=== PATIENT | female | born 2005 | race Caucasian/White ===

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

== ENCOUNTER 2025-02-12 01:16 | Emergency (ER) | payer OTHER, SELFPAY ==
--- NOTE | 2025-02-12 01:20 | CRLHL7_ITS ---
For Patients: As a result of the Cures Act, medical imaging exams and procedure reports are released immediately into your electronic medical record. You may view this report before your referring provider. If you have questions, please contact your health care provider. Indication: Pain, fall out of bed Technique: Three views of the left ankle Comparison: None Findings/Impression: No acute radiographic abnormality appreciated. Dictated by Terry Steele MD @ 02/12/2025 1:44:35 AM (Electronically Signed)
--- OUTSIDE RECORDS SUMMARY | 2025-02-12 01:21 | XMS_ITS | Clinical Summary ---
Author Organization [employer] [facility] Address [address] [place] [address] Care Team Providers Care Illuminating Engineer Name Role Phone Sahara Adair NP Primary Care Provider [phone] [phone] Allergies No known active allergies Medications lithium carbonate (LITHOBID) 300 mg Controlled-Rele ase tablet TAKE 1 TABLET BY MOUTH DAILY IN THE MORNING AND 2 TABLETS BY MOUTH DAILY IN THE EVENING 08/30/2019 Active lithium carbonate (ESKALITH-CR) 450 mg Controlled-Rele ase tablet TAKE 2 TABLETS (900 MG) BY MOUTH AT BEDTIME 09/24/2020 Active propranolol ER (INDERAL LA) 60 mg Cs24 Sustained-Relea se capsule TAKE ONE CAPSULE (60MG) BY MOUTH ONCE DAILY 01/15/2022 Active ziprasidone (GEODON) 80 mg capsule TAKE 1 CAPSULE (80 MG) BY MOUTH IN THE EVENING WITH FOOD 01/12/2022 Active benztropine (COGENTIN) 0.5 mg tabletIndicatio ns:Excessive sweating Take 1 Tablet (0.5 mg) by mouth two times daily. 0 02/01/2022 Active oxyCODONE (ROXICODONE) 5 mg/5 mL solutionIndicat ions:Sore throat Take 5 mL (5 mg) by mouth every 6 hours if needed for Pain. 60 mL 07/03/2023 Active Active Problems Problem Noted Date Diagnosed Date Bipolar 1 disorder 01/29/2018 Overview (01/29/2018): Managed by Psych [facility] 04/30/2017 Encounters Date Type Department Care Team Description 12/24/2024 11:15 AM CDT Orders Only [facility] [address] [place] [address] Lab, [facility] 12/24/2024 Travel 12/24/2024 Telephone [facility] [address] [place] [address] Sahara Adair NP Lab (orders needed) from Last 3 Months Immunizations Immunization Administration Dates Next Due AMB Influenza, IIV3 (Age >=3 years) Preserve Free (Flu Clinic Only) 03/22/2017 DTaP 04/01/2010, 5,01/01/2005,09/25 DTaP-HIB (TriHIBIT) 01/04/2006 HIB-HepB (Comvax) 01/01/2005,2004 Hepatitis A (Peds) 09/15/2007,07/15/2006 Hepatitis B (Peds) 06/22/2005 Inactivated Polio Vaccine 04/01/2010,,01/01/2005,09/25 Influenza A (H1N1), Inactivated 06/02/2009,04/23 Influenza, IIV3 (Age 6-35 mos) 05/23/2016 Influenza, IIV3 (Age >=3 years) 04/01/20 10,04/18/2006,06/05/2005,04/10 Influenza, IIV4 03/13/2019,01/29/2018,03/22/2017 Influenza, IIV4 (=>6mos) MDV 04/02/2015 Influenza,LAIV4 Live Intrana yesy (Flumist) 02/08/2012 MENINGOCOCCAL VACCINE 2 VIAL 2MO-55YO (MENVEO) 11/10/2020 MMR 04/01/2010,11/02/2005 Meningococcal Vaccine (Menactra) 12/07/2016 Pneumococcal conj 7-Valent (Prevnar 7) 0 01/04/2006,02/19/2005,01/01/2005,09/25 Tdap 03/03/2016 Varicella Vaccine 04/01/2010,11/02/2005 Family History Medical History Relation Name Comments ADD / ADHD Father Bilateral breast cancer Maternal Grandmother Parkinsonism Maternal Grandmother Anxiety disorder Mother Depression Mother Diabetes Paternal Grandfather Relation Name Status Comments Father Alive Maternal Grandmother Alive Mother Alive Paternal Grandfather Social History Tobacco Use Types Packs/Day Years Used Date Smoking Tobacco: Never Smokeless Tobacco: Never Alcohol Use Standard Drinks/Week Comments Never 0 (1 standard drink = 0.6 oz pur e alcohol) PHQ-2 Answer Date Recorded PHQ-2 TOTAL SCORE 1 02/01/2022 Social Connections Answer Date Recorded Frequency of Communication with Friends and Fami ly Not on file 06/03/2021 Financial Resource Strain Answer Date R ecorded Difficulty of Paying Living Expenses Not on file 06/03/2021 Difficulty of Paying Living Expenses Not on file 06/03/2021 Comments No Sex and Gender Information Value Date Recorded Sex Assigned at Not on file Legal Sex Female 8:30 AM SEMICONDUCTOR WAFERS ETCHER STRIPPER Gender Identity Not on file Sexual Orientation Not on file Obstetrics History Last Filed Vital Signs Vital Sign Reading Time Taken Comments Blood Pressure 102/62 07/03/2023 1:46 PM SEMICONDUCTOR WAFERS ETCHER STRIPPER Pulse 92 07/03/2023 1:46 PM SEMICONDUCTOR WAFERS ETCHER STRIPPER Temperature 36.8 C (98.3 F) 07/03/2023 1:46 PM SEMICONDUCTOR WAFERS ETCHER STRIPPER Respiratory Rate 15 11/28/2021 9:13 AM CDT Oxygen Saturation 99% 07/03/2023 1:46 PM SEMICONDUCTOR WAFERS ETCHER STRIPPER Inhaled Oxygen Concentration - - Weight 114.3 kg (252 lb) 07/03/2023 1:46 PM SEMICONDUCTOR WAFERS ETCHER STRIPPER Height 165.5 cm (5' 5.16) 02/01/2022 9:49 AM CD T Body Mass Index - - Plan of Treatment Health Maintenance Due Date Last Done Comments HPV series for age 9-45 (1 - 3-dose series) 2019 BMI (ht and wt on same day) for age 18+ 2022 Hepatitis C screening for age 18-79 2022 Depression screening for age 12+ 02/01/2023 02/01/2022, 11/10/2020, 01/08/2019, Additional history exists Well Child Check for age 3-20 02/01/2023 02/01/2022, 11/10/2020 COVID-19 vaccine series ( season) 2025 Influenza Vaccine (#1) 2025 9, 01/29/2018, 03/22/2017, Additional history exists Tetanus booster 03/03/2026 03/03/2016 RSV vaccine for adults or (1 - 1-dose 75+ series) 2079 Hepatitis B series for 19+ Completed 06/22, 01/01/2005, 2004 Pneumococcal series for age 6-49 Aged Out 01/04/2006, 02/19/2005, 01/01/2005, Additional history exists No longer eligible based on patient's age to complete this topic Meningococcal series for age 11-21 Completed 11/10/2020, 12/07/2016 HIV for age 15-65 Completed 01/31/2022 Procedures Procedure Name Priority Date/Time Associated Diagnosis Comments ANTI HIV 1/2 Add On 01/31/2022 9:41 AM CDT Screening for HIV (human immunodeficiency virus) from Last 3 Months or Most Recently Relevant to Health Maintenance Results * ANTI HIV 1/2 [63505.0] (01/31/2022 9:41 AM CDT) HIV-1/HIV-2 ANTIBODY Non-Reacti ve Non-Reacti ve 01/31/2022 6:59 PM CDT [facility] Comment:HIV-1 p24 and HIV-1/ HIV-2 Ab not detected. Blood BLOOD SPECIMEN / Unknown Butterfly / Unknown 01/31/2022 9:41 AM CDT 01/31/2022 9:41 AM CDT us Sahara Adair RECONCILIATION COORDINATOR SEND OUTS Final Res ult [facility] [address] [place] [address], [place] from Last 3 Months or Most Recently Relevant to Health Maintenance Insurance [employer] Care Teams Illuminating Engineer Relationship Specialty [place] [address] [place] [address] PCP - General Nurse Practitioner 09/14/19
--- OUTSIDE RECORDS SUMMARY | 2025-02-12 01:21 | XMS_ITS | Clinical Summary ---
Author Organization [employer] Address [address] [place] [address] Care Team Providers Care Action Finisher Name Role Phone Self-Referral, Patient MD Primary Care Provider Source Comments You are receiving this document as you are listed as the primary care provider,follow-up provider, or the patient has been referred to you for consultation.This is in compliance with the Medicare andSt[facility] EHR Incentive Program,which states Providers who transition their patient to another setting of careor provider of care or refers their patient to another provider of care shouldprovide summary care record for each transition of care or referral. [employer] Allergies Active Allergy Reactions Criticality Noted Date Comments Ibuprofen Other, see comments 07/16/2022 Cant take ibuprofen due to lithium Medications VYVANSE 50 MG capsule 0 Active lithium carbonate ER (LITHOBID) 300 MG extended release tablet 0 Active lamoTRIgine (LAMICTAL) 100 MG tablet PLEASE SEE ATTACHED FOR DETAILED DIRECTIONS 0 Active lamoTRIgine (LAMICTAL) 150 MG tablet 0 Active FLUoxetine (PROZAC) 10 MG capsule TAKE 1 CAPSULE (10 MG) BY MOUTH DAILY THE WEEK BEFORE MENSTRUAL CYCLE 0 Active FLUoxetine (PROZAC) 20 MG capsule Take 1 Capsule (20 mg) by mouth daily. 0 Active amphetamine-dext roamphetamine (ADDERALL) 10 MG tablet Take 1 Tablet (10 mg) by mouth two times a day. 0 Active doxycycline monohydrate (MONODOX) 100 MG capsule Take 1 Capsule by mouth two times a day. TAKE WITH FOOD. 60 Capsule 2 0 Active Additional Information Patient not taking.Reported on 07/01/2023 tretinoin (RETIN-A) 0.05 % cream Apply pea-size amount to entire face every other night and slowly increase to nightly use as tolerated. 45 g 11 0 Active Additional Information Patient not taking.Reported on 07/16/2022 tazarotene (TAZORAC) 0.1 % gel Apply thin coat to acne prone skin QOHS after washing and moisturizer. Increase to QHS as tolerated. 60 g 5 0 Active Additional Information Patient not taking.Reported on 07/16/2022 trimethoprim-kedar ymyxin B (POLYTRIM) 14425-1.1 UNIT/ML-% eye drop solution Place 1 Drop into left eye every 6 hours. 10 mL 1 Active Additional Information Patient not taking.Reported on 04/02/2022 propranolol (INDERALLA) 60 MG 24 hour release capsule Take 1 Capsule (60 mg) by mouth daily. 2 Active ziprasidone (GEODON) 40 MG capsule Take 1 Capsule (40 mg) by mouth every morning. 2 Active ziprasidone (GEODON) 20 MG capsule Take 1 Capsule (20 mg) by mouth every morning. 2 Active VENTOLIN HFA 108 (90 Base) MCG/ACT inhaler 2 Puffs every 4 hours as needed. 2 Active hydrOXYzine HCl (ATARAX) 10 MG tablet Take 1-2 Tablets (10-20 mg) by mouth as needed. 3 Active lisdexamfetamine (VYVANSE) 60 MG capsule Take 1 Capsule (60 mg) by mouth every morning. 3 Active lisdexamfetamine (VYVANSE) 70 MG capsule Take 1 Capsule (70 mg) by mouth every morning. 4 Active Active Problems No known active problems Social History Tobacco Use Types Packs/Day Years Used Date Smoking Tobacco: Never Smokeless Tobacco: Never Tobacco Cessation:Counseling Given: Not Answered Comments No Sex and Gender Information Value Date Recorded Sex Assigned at Not on file Legal Sex Female 5:17 PM TAG MARKER Gender Identity Not on file Sexual Orientation Not on file Last Filed Vital Signs Vital Sign Reading Time Taken Comments Blood Pressure 122/69 07/01/2023 6:57 PM TAG MARKER Pulse 102 07/01/2023 6:57 PM TAG MARKER Temperature 38.2 C (100.7 F) 07/01/2023 6:57 PM TAG MARKER Respiratory Rate 18 07/01/2023 6:57 PM TAG MARKER Oxygen Saturation 98% 07/01/2023 6:57 PM TAG MARKER Inhaled Oxygen Concentration - - Weight - - Height - - Body Mass Index - - Plan of Treatment Health Maintenance Due Date Last Done Comments Chlamydia 2004 Hep C Screening (Preventive Services) 2004 MenB Immunization Discussion 2004 HPV Vaccine (1 - 3-dose series) 2019 HIV Screening (Preventive Services) 2020 Adult Preventive Visit 2022 HepB Vaccine (1) 2023 COVID-19 Vaccine ( season) 2025 Influenza Vaccine (#1) 2025 9, 01/29/2018, 03/22/2017, Additional history exists DTaP/Tdap/Td Vaccine (7 - Tdap) 03/03/2026 03/03/2016, 04/01/2010, 01/04/2006, Additional history exists Zoster/Shingles Vaccine (1 of 2) 2054 Hib Vaccine Completed 01/04/2006, 06/2004, 2004 Pneumococcal Vaccine Aged Out 01/04/2006, 02/19/2005, 01/01/2005, Additional history exists No longer eligible based on patient's age to complete this topic HepA Vaccine Completed 09/15/2007, 07/15/2006 IPV (Polio) Vaccine Completed 04/01/2010, 06/22/2005, 01/01/2005, Additional history exists MCV4 Vaccine Completed 11/10/2020, 12/07/2016 Insurance SELF INSURED SELF INSURED Care Teams Action Finisher Relationship Specialty Start Date End Date Self-Referral, Patient, [place] [address] PCP - General 07/16/22
--- OUTSIDE RECORDS SUMMARY | 2025-02-12 01:21 | XMS_ITS | Clinical Summary ---
Author Organization [facility] Address [address] [place] [address] Care Team Providers Care Deck Supervisor Name Role Phone Unavailable Primary Care Provider Unavailabl e Source Comments Patient records contain information from all sites at [facility]. For routine questions regarding patient records, call [phone] during business hours, M-F 8:00 AM - 5:00 PM Central Time. Record requests for emergency care only can be directed to [phone] at any time.[facility] Medications * This document contains information received from the source organization and may not represent a complete record from that organization. methylphenidate HCl 54 mg ER tablet Take 72 mg by mouth every morning. Active lurasidone (Latuda) 80 mg tablet Take 120 mg by mouth daily with morning meal. Administer with food (at least 350 calories) Active lamoTRIgine (LaMICtaL) 150 mg tablet Take 150 mg by mouth daily. Active lamoTRIgine (LaMICtaL) 200 mg tablet Take 200 mg by mouth daily. Active propranolol XL 80 mg 24 hr capsule Take 80 mg by mouth at bedtime. Active Active Problems Problem Noted Date Diagnosed Date Bipolar I Mixed Moderate 01/07/2017 Attention Deficit Disorder Combined Type 017 Immunizations Immunization Administration Dates Next Due influenza vaccine quad (FLUZ ONE/FLUARIX) (6 months and older)(PF) 03/22/2017 Social History Tobacco Use Types Packs/Day Years Used Date Smoking Tobacco: Never [facility] Utilities Answer Date Recorded In the past 12 months has [facility] [employer], gas, oil, or water company threatened to shut off services in your home? No 03/25/2024 Hunger Vital Sign Answer Date Recorded Within the past 12 months, y ou worried that your food would run out before you got the money to buy more. Never true 03/25/20 24 Within the past 12 months, t he food you bought just didn't last and you didn't have money to get more. Never true 03/25/2024 PRAPARE - Transportation Answer Date Re corded In the past 12 months, has l ack of transportation kept you from medical appointments or from getting medications? No 03/04 In the past 12 months, has l ack of transportation kept you from meetings, work, or from getting things needed for daily living? No 03/25/2024 Depression Answer Date Recor ded PHQ-9 Total Score (max 27) 14 03/25 Housing Stability Answer Date Recorded What is your living situation today? [facility] place to live 03/25/2024 Comments Unknown Sex and Gender Information Value Date Recorded Sex Assigned at Not on file Legal Sex Female 1:14 PM CDT Gender Identity Not on file Sexual Orientation Not on file Last Filed Vital Signs Vital Sign Reading Time Taken Comments Blood Pressure 112/70 03/25/2024 7:25 AM CDT Pulse 98 03/25/2024 7:25 AM CDT Temperature - - Respiratory Rate - - Oxygen Saturation - - Inhaled Oxygen Concentration - - Weight 114 kg (250 lb 10.6 oz) 03/25/2024 7:25 A M CDT shoes on Height 167.5 cm (5' 5.95) 03/25/2024 7:25 AM CD T shoes on Body Mass Index 40.53 03/25/2024 7:25 AM CDT Plan of Treatment Health Maintenance Due Date Last Done Comments Chlamydia and Gonorrhea Screening 2004 HIV Screening 2004 Hearing Screening during Well Child Visit 2004 Hepatitis C Screening 2004 TB Screening during Well Child Visit 2004 1 week Well Child Check-Up 2004 1 month Well Child Check-Up 2004 2 month Well Child Check-Up 2004 4 month Well Child Check-Up 2004 9 month Well Child Check-Up 03/30/2005 15 month Well Child Check-Up 09/28/2005 18 month Well Child Check-Up 12/28/2005 2 year Well Child Check-Up 06/30/2006 30 month Well Child Check-Up 12/28/2006 3 year Well Child Check-Up 06/30/2007 Well Child Check-Up Completed in Past Year 06/30/2007 5 year Well Child Check-Up 06/30/2009 6 year Well Child Check-Up 06/30/2010 7 year Well Child Check-Up 06/30/2011 8 year Well Child Check-Up 06/30/2012 10 year Well Child Check-Up 06/30/2014 12 year Well Child Check-Up 06/30/2016 13 year Well Child Check-Up 06/30/2017 14 year Well Child Check-Up 06/30/2018 Vision Screening during Well Child Visit 2018 15 year Well Child Check-Up 06/30/2019 HPV Vaccines (1 - 3-dose series) 2019 17 year Well Child Check-Up 06/30/2021 18 year Well Child Check-Up 06/30/2022 19 year Well Child Check-Up 06/30/2023 Depression Screening (Annual PHQ-2) 06/03/2024 20 year Well Child Check-Up 06/30/2024 Well Child Check-Up (WCC) 06/30/2024 COVID-19 Vaccine ( season) 2025 Influenza Vaccine (#1) 2025 9, 01/29/2018, 03/22/2017, Additional history exists Glucose Test for Med Monitoring 10/08/2025 10/08/2024, 08/01/2023, 03/12/2023, Additional history exists DTaP,Tdap,and Td Vaccines (7 - Td or Tdap) 03/03/2026 03/03/2016, 04/01/2010, 01/04/2006, Additional history exists Hepatitis B Vaccines Completed 06/22/2005, 01/01/2005, 2004 Pneumococcal vaccine (0-49 years) Aged Out 01/04/2006, 02/19/2005, 01/01/2005, Additional history exists No longer eligible based on patient's age to complete this topic IPV Vaccines Completed 04/01/2010, 06/04, 01/01/2005, Additional history exists Meningococcal Vaccine Completed 11/10/2020, 017 Anemia/Iron Deficiency Screening During Well Child Visit (if High Risk Menstruating Female) Completed 08/01/2023, 07/04/2022, 10/13/2021, Additional history exists Procedures Procedure Name Priority Date/Time Associated Diagnosis Comments CBC WITH DIFFERENTIAL, B Routine 03/22/2017 2:51 PM CDT from Last 3 Months or Most Recently Relevant to Health Maintenance Results * (ABNORMAL) CBC with Differential (03/22/2017 2:51 PM CDT) Hemoglobin 12.9 12.2 - 14.8 G/DL [facility] Hematocrit 38.6 36.3 - 43.4 % [facility] RBC Distrib Width 12.3 11.2 - 13.5 % [facility] Platelet Count 351 150 - 450 X10(9)/L [facility] Leukocytes 9.4(H) 4.1 - 8.9 X10(9)/L [facility] Neutrophils 5.59 1.80 - 8.00 X10(9)/L [facility] Eosinophils 0.32 0.00 - 0.50 X10(9)/L [facility] Basophils 0.06 0.00 - 0.20 X10(9)/L [facility] Erythrocytes 4.69 4.10 - 5.20 X10(12)/L [facility] MCV 82.3 79.9 - 92.3 FL [facility] Lymphocytes 2.83 1.20 - 5.20 X10(9)/L [facility] Monocytes 0.60 0.00 - 0.80 X10(9)/L [facility] 03/22/2017 2:51 PM CDT 03/22/2017 2:51 PM CDT us Estrada Kemp D.O. LAB BLOOD ADD-ON Final Resul t [facility] [address] [place] [address], [facility] from Last 3 Months or Most Recently Relevant to Health Maintenance Insurance [employer] [place] [id number] [facility] [place] [id number]
--- OUTSIDE RECORDS SUMMARY | 2025-02-12 01:21 | XMS_ITS | Clinical Summary ---
Author Organization [facility] Address [address] [place] [address]. [place] [address] Care Team Providers Care Parking Meter Mechanic Name Role Phone Giovany Saharaadam Dueñas NP Primary Care Provider [phone] Allergies No known active allergies Medications propranolol ER (INDERAL LA) 60 MG 24 hr capsule Take 80 mg by mouth daily. 2 Active lurasidone (LATUDA) 80 MG TABS tablet Take 120 mg by mouth daily. Active lamoTRIgine (LAMICTAL) 200 MG tablet Take 350 mg by mouth daily. 2 Active Methylphenidate HCl (CONCERTA PO) Take by mouth. Activ e methylphenidate HCl ER, OSM, (CONCERTA) 36 MG CR tablet Take 36 mg by mouth every morning. Active ibuprofen (ADVIL/MOTRIN) 800 MG tabletIndicatio ns:Encounter for IUD insertion Take 1 tablet (800 mg) by mouth every 6 hours as needed for other (mild and/or inflammatory pain). 30 tablet 5 Active acetaminophen (TYLENOL) 325 MG tabletIndicatio ns:Encounter for IUD insertion Take 3 tablets (975 mg) by mouth every 6 hours as needed for mild pain. 50 tablet 5 Active Immunizations Immunization Administration Dates Next Due Influenza (H1N1) 06/02/2009 Social History Tobacco Use Types Packs/Day Years Used Date Smoking Tobacco: Never Smokeless Tobacco: Never Tobacco Cessation:Counseling Given: Not Answered Alcohol Use Standard Drinks/Week Comments Not Currently 0 (1 standard drink = 0.6 oz pur e alcohol) Adolescent Education Answer Date Record ed Getting School Help Needed Not on file 07/02 Interpersonal Safety Answer Date Record ed Do you feel physically and e motionally safe where you currently live? Yes 09/30/2024 Within the past 12 months, h ave you been hit, slapped, kicked or otherwise physically hurt by someone? No 09/30/2024 Within the past 12 months, h ave you been humiliated or emotionally abused in other ways by your partner or ex-partner? No 09/30/2024 Comments No Sex and Gender Information Value Date Recorded Sex Assigned at Not on file Legal Sex Female 4:36 AM LEAD JAVASCRIPT ENGINEER Gender Identity Not on file Sexual Orientation Not on file Last Filed Vital Signs Vital Sign Reading Time Taken Comments Blood Pressure 130/79 10/08/2024 5:00 PM CDT Pulse 98 10/08/2024 5:00 PM CDT Temperature 37.3 C (99.2 F) 10/08/2024 5:00 PM CDT Respiratory Rate 18 10/08/2024 5:00 PM CDT Oxygen Saturation 100% 10/08/2024 5:00 PM CDT Inhaled Oxygen Concentration - - Weight 118.3 kg (260 lb 12.8 oz) 10/08/2024 5:00 PM CDT scale Height 162.6 cm (5' 4) 10/08/2024 5:00 PM CDT Body Mass Index 44.77 10/08/2024 5:00 PM CDT Plan of Treatment Health Maintenance Due Date Last Done Comments ADVANCE CARE PLANNING 2004 ANNUAL REVIEW OF HM ORDERS 2004 HPV VACCINE (1 - 3-dose series) 2019 MENINGITIS B VACCINE (1 of 2 - Standard) 2020 HEPATITIS C SCREENING 2022 PHQ-2 (once per calendar year) 2024 YEARLY PREVENTIVE VISIT 01/09/2025 01/10/20 24, 02/01/2022, 11/10/2020 COVID-19 VACCINE ( season) 2025 INFLUENZA VACCINE (#1) 2025 9, 01/29/2018, 03/22/2017, Additional history exists CHLAMYDIA SCREENING 09/04/2025 09/04/2024 DTAP/TDAP/TD VACCINE (7 - Td or Tdap) 03/03/2026 03/03/2016, 04/01/2010, 01/04/2006, Additional history exists ZOSTER VACCINE (1 of 2) 2054 HEPATITIS B VACCINE Completed 06/22/2005, 01/01/2005, 2004 PNEUMOCOCCAL VACCINE: PEDIATRICS (0 to 5 YEARS) AND AT-RISK PATIENTS (6 to 49 YEARS) Aged Out 01/04/2006, 02/19/2005, 01/01/2005, Additional history exists No longer eligible based on patient's age to complete this topic MENINGITIS VACCINE Completed 11/10/2020, 12/07/2016 HIV SCREENING Completed 01/31/2022 Goals Goal Patient Goal Type Associated Problems Recent Progress Patient-Stated? 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 trachomatis rRNA by motor mechanic mediated amplification. A negative result by motor mechanic mediated amplification does not preclude the presence of infection because results are dependent on proper and adequate collection, absence of inhibitors and sufficient rRNA to be detected. Neisseria gonorrhoeae Negative Negative 09/05/2024 12:21 PM CDT [facility] Comment:Negative for N. gono rrhoeae rRNA by motor mechanic mediated amplification. A negative result by motor mechanic mediated amplification does not preclude the presence of C. trachomatis infection because results are dependent on proper and adequate collection, absence of inhibitors and sufficient rRNA to be detected. CTNG Specimen Source Cervix 09/05/2024 12:21 PM CDT [facility] Swab TOPOGRAPHY UNKNOWN / Unknown Non-blood Collection / Unknown 09/04/2024 1:17 PM CDT 09/04/2024 4:00 PM CDT us Caterina Smith CNM LAB - MICRO GENERAL ORDERABL ES Final Result [facility] Inf. Diseases Diag. Lab [address] [facility] [place] [address] from Last 3 Months or Most Recently Relevant to Health Maintenance Additional Health Concerns Active Problems Noted Date Diagnosed Date MyC ECC SURG ENROLL 09/23/2024 [facility] Care Teams Parking Meter Mechanic Relationship Specialty [place] [id number] [address] [place], [place] [id number] PCP - General Family Medicine 09/16/24
[2025-02-12 01:23] VITALS: BP 140/70; PULSE 89; RESP 16; TEMP 36.6; O2SAT 98; BMI 42.9
[2025-02-12 01:30] VITALS: PULSE 90
--- NOTE | 2025-02-12 01:39 | ED_ITS ---
HPI - General Adult General Chief complaint: Extremity Pain/Injury, Lower Stated complaint: poss broken left ankle Time Seen by Provider: 02/12/25 01:19 History of Present Illness HPI narrative: Patient is a 19-year-old young lady who stumbled out of bed tonight and twisted her left ankle. She has pain over the lateral malleolus. She has some minor swelling but no ecchymosis. She is having trouble bearing weight. She has had no other injuries. No skin breakdown no other related symptoms. Patient is otherwise in her usual state of health. X-ray series reviewed by me shows no acute abnormalities of the left ankle. Related Data Home Medications ?Medication ?Instructions ?Recorded ?Confirmed lamotrigine 150 mg tablet 150 mg PO DAILY 11/05/2309/24 lamotrigine 200 mg tablet 200 mg PO QDAY 11/05/2309/24 lurasidone 80 mg tablet 80 mg PO DAILY 11/05/2309/24 propranolol 80 mg capsule,24 80 mg PO DAILY 11/05/23 0 11/05/23 hr,extended release Allergies Allergy/AdvReac Type Severity Reaction Status Date / Time No Known Drug Allergies Allergy Verified 11/05/23 13:41 Review of Systems Status of ROS: Reports: 10 or more systems reviewed and unremarkable except as noted in History and below [facility] Medical History Uvulitis ?K12.2 - Cellulitis and abscess of mouth (ICD-10) Sore throat ?J02.9 - Acute pharyngitis, unspecified (ICD-10) Surgical History No significant past surgical history Social History Smoking Status: Never smoker Do you use any of these nicotine containing products: None Second hand tobacco smoke exposure: No How often do you have a drink containing alcohol: never How often do you have six or more drinks on one occasion: Never AUDIT-C Alcohol total score: 0 Non-prescribed substance use: denies use Exam Narrative: Exam Narrative: EXAM GENERAL: Patient appears comfortable and well. EYES: No scleral icterus. LYMPH: No supraclavicular or cervical lymphadenopathy. SKIN: Visible skin seen during exam normal or with benign process only. EXT: No dependent lower extremity pedal edema. Swelling noted lateral ankle on the left. ABD: Soft, non tender, non distended. PSYCH: Good eye contact, speech is not pressured. Const: Vital Signs, click to edit/add: Vital Signs - 24 hr 02/12/25 01:23 02/12/25 01:30 Temperature 98 F Pulse Rate [Left D orsalis Pedis] 90 Pulse Rate [Pulse Oximeter] 89 Respiratory Rate 16 Blood Pressure [Ri ght Upper Arm] 140/70 H Pulse Oximetry 98 Oxygen Delivery Me thod Room Air Course Vital Signs Vital signs: Initial Vital Signs Temperature 98 F 02/12/25 01:23 Temperature Source Temporal Artery Scan 02/12/25 01:23 Pulse Rate 89 02/12/25 01:23 Respiratory Rate 16 02/12/25 01:23 Blood Pressure 140/70 H 02/12/25 01:23 Blood Pressure Mean 93 02/12/25 01:23 Blood Pressure Position Semi-Fowlers 02/12/25 01:23 Pulse Oximetry 98 02/12/25 01:23 Oxygen Delivery Method Room Air 02/12/25 01:23 Vital Signs Temperature 98 F 02/12/25 01:23 Pulse Rate 89 02/12/25 01:23 Respiratory Rate 16 02/12/25 01:23 Blood Pressure 140/70 H 02/12/25 01:23 Pulse Oximetry 98 02/12/25 01:23 Oxygen Delivery Method Room Air 02/12/25 01:23 Temperature 98 F 02/12/25 01:23 Pulse Rate 90 02/12/25 01:30 Respiratory Rate 16 02/12/25 01:23 Blood Pressure 140/70 H 02/12/25 01:23 Pulse Oximetry 98 02/12/25 01:23 Oxygen Delivery Method Room Air 02/12/25 01:23 Medical Decision Making MDM Narrative Medical decision making narrative: Patient is a 19-year-old woman who appears to have sprained her left ankle. I did review her x-rays personally and I do not believe there are any fractures. She is offered rest ice compression elevation rotation of Tylenol Motrin. She does require crutches. I will be looking for the radiology over read as well. Discharge Plan Discharge Clinical Impression: Ankle sprain Patient Disposition: Home, Self-Care Condition: Stable Instructions: Ankle Sprain (ED) Additional Instructions: Rest Ice Compression Elevation Crutches as needed Tylenol Motrin Follow-up with your doctor if no improvement by mid week next week. Activity Level: No Restrictions Discharge Diet: Regular Prescriptions: No Action lurasidone 80 mg tablet 80 mg PO DAILY lamotrigine 150 mg tablet 150 mg PO DAILY propranolol 80 mg capsule,extended release 24 hr 80 mg PO DAILY lamotrigine 200 mg tablet 200 mg PO QDAY Follow Up/Referrals: Sahara Adair, ALBERT, BEHAVIORAL CONSULTANT [Primary Care Provider, Family Practice] [facility]: [facility] Info Instructions
== END 2025-02-12 02:00 | disposition home or self-care (01) ==
LOC: ED 01:58
PROVIDERS: Emergency Provider Internal Medicine
DX: S93.402A Sprain of unspecified ligament of left ankle, initial encounter (principal); W18.49XA Other slipping, tripping and stumbling without falling, initial encounter; Y92.003 Bedroom of unspecified non-institutional (private) residence as the place of occurrence of the external cause
CPT/HCPCS: 73610; 99283

== ENCOUNTER 2025-05-24 16:31 | Emergency (ER) | payer OTHER, SELFPAY ==
--- OUTSIDE RECORDS SUMMARY | 2025-05-24 16:33 | XMS_ITS | Data Portability ---
Author Organization GOLDY Urias [employer], [id number] Address [address] [place] [address] Assessment Encounter Date Assessment Date Assessment LastModified by Organization Details LastModified Time 09/17/2024 09/17/2024 19yo G0 schedule d for an EUA, Kyleena IUD insertion with formal ultrasound guidance at [facility] 09/30/24. Ali is scheduled for the above surgery and has no questions today. We reviewed the procedure in detail. All risks, benefits and alternatives were discussed including but not limited to bleeding, injection, injury to surrounding organs/vessels/nerves, need for further procedures, medical complications, risks of anesthesia and uterine perforation (<06/999). We discsused that ultrasound guidance does not negative the last noted risk. She expressed understanding and all of her questions were answered to her satisfaction. This service was provided using telemedicine including synchronous audio and/or video approved technology. The patient verbally Consents to telemedicine services, virtual check-ins and evisits. Telemedicineconsultation via Synchronous Audio and Video Call. The patient is located in their home-10 when receiving health services through telecommunication technology. I spent a total of 10 minutes providing care for this patient including: preparing to see the patient, obtaining a medical history, completing a medically appropriate physical exam, completing documentation of visit information and plans in the EMR, counseling the patient and/or caregiver regardingher diagnosis, treatment options and follow up plans, as well as any necessary communication of subsequent test results to the patient. nrxiedkamr9Bol difmpugus91/17/2025 15:09:5405I spent a total of 20 minutes providing care for this patient including: preparing to see the patient, obtaining a medical history, completing a medically appropriate physical exam, completing documentation of visit information and plans in the EMR, counseling the patient and/or caregiver regardingher diagnosis, treatment options and follow up plans, as well as any necessary communication of subs equent test results to the patient, Excludes time spent on separately identifiable services.[id number] available 10/23/2024 13:31:5606//1yo G0, Kyleena IUD check. Minal's Kyleena IUD strings were visualized on exam today and she was reassured that her IUD is in the correct location, as was also highlighted on 2 prior ultrasounds. We discussed possible bleeding profiles over the next 6-12 weeks, including but not limited to irregular spotting, regular periods, irregular periods and amenorrhea. We discussed that her cramping is likely dysmenorrhea and thusiburprofen 800mg PO TID is recommended, rather than prn. She expressed understanding. She will callif she is unhappy with her IUD. She will otherwise follow up for an annual exam in 1 year. lgezymrgjn7Cjv awuwpbvrb69/27/2025 16:07:24 Plan of Treatment Reminders Order DateSubmit DateProviderLast Modified ByAsh Shaw Modified TimeDetailsAppointmentsG_OFFICE VISIT06/11/2025 08:15SONJAAICOMFORT YU MDNot availableNot availableNot availableLabculture, urine[address], [facility] [address], [place], [address], 85 13:22:17urinalysis, dipstick, autoTHENA Gg404_oeelywzez_xolkdxdznh, [address] [place] [address] [address], [address], [place], [address], 05 12:42:29ReferralNone recorded. ProceduresNone recorded.SurgeriesNone recorded.ImagingUS, /23/2025 10/23/2024jjaquaCc004_eileen_sadie, [address], [facility] [address], [address], 04 17:42:10Medication Ordersmetronidazole 500 mg twzgyh14[facility] [address], [address] [facility], [place], [address], [address]10/13/2024 11:22:55doxycycline hyclate 100 mg cerfxrl74[facility] [address], [address] [facility], [place], [address], 23254610/13/2024 11:22:54 ceftriaxone 500 mg solution for gahmwaenl32tleidner1Not kaibzrclr96/13/2025 12:12:21 Patient TargetsNo targets recorded. Patient InstructionsNo instructions recorded. Reason for Referral None Reported. Results Created Date Observation Date Name Description Value Unit Range Abnormal Flag Note LastModifiedBy Organization Detail LastModifiedTime 08/20/2024 08/20/2024 test, urine Unknown Analyte negative Not EgexkdvhrOh415_wqueafagn_qkhym [address] [facility] [address], [place], [address], 21 15:12:020GC CHLAMYDIA BY PCRchlamydia trachomatisNegative negativeNegative for C. trachomatis rRNA by management trainee mediated amplification. A negative result by management trainee mediated amplification does not preclude the presence of infection because results are dependent on proper and adequate collection, absence of inhibitors and sufficient rRNA to be detected.Not Available[address], [place], [address], 9209/05/2024 13:23:2804/GC CHLAMYDIA BY PCRneisseria gonorrhoeaeNegative negativeNegative for N. gonorrhoeae rRNA by management trainee mediated amplification. A negative result by management trainee mediated amplification does not preclude the presence of C. trachomatis infection because results are dependent on proper and adequate collection, absence of inhibitors and sufficient rRNA to be detected.Not AvailableBrian [address], [place], [address], Ph [phone] 13:23:GC CHLAMYDIA BY PCRctng specimen sourceCervixNot AvailableRobin Ville [address], [place], [address], Ph [phone] 13:23:280acterial vaginosis + vaginitis panel, vaginal gardnerellanegativenegativeNot GzsxhqnoaZm708_rtafzrztv_fesouzlszc[address], [address], 84 14:17:11009/04/acterial vaginosis + vaginitis panel, vaginaltrichomonasnegativenegativeNot SqfsfebxnUu159_tpdthhztl_quvgkggpuh[address], [address], [address] 14:17:11[address]/04/89518109/04/2024acterial vaginosis + vaginitis panel, vaginalcandidanegativenegativeNot GlsclmnetZo238_pummcsyyz_nvpvujyxxc[address], [address], 24 14:17:1105URINE CULTUREurine cultureSEE RESULTS BELOWSPECIMEN SOURCE Urine Urine, Clean Catch CULTURE RESULTS No Growth REPORT STATUS FINAL 10/14/2024Not Available[address], [place], [address], Ph [phone] 13:22:urinalysis, dipstick, autoUnknown AnalyteClean Catch Not HnjbtqlztUu199_cogenasce_aduqahllxt[address], [place], [address], Ph [phone] 11:19:urinalysis, dipstick, autoUnknown AnalytenegativeNot EajjsugyyXr015_ektygfwjr_hkfqsmbjfr[address], [place], [address], Ph [phone] 11:19:urinalysis, dipstick, autoUnknown AnalytenegativeNot VboazhozqNk100_hnjcjwgya_cbekicaamu[address], [place], [address], Ph [phone]) 11:19:urinalysis, dipstick, autoUnknown AnalytenegativeNot MaghzxuwcRt359_chbdlyzlk_cukrcgviiy[address], [place], [address], Ph [phone] 11:19:urinalysis, dipstick, autoUnknown Analyte1.030Not YvopeixdaEm249_oygffdqlj_ufpzctumgb[address], [place], [address], Ph [phone] 11:19:urinalysis, dipstick, autoUnknown AnalytenegativeNot ZugsuugjpPh311_wfzdqtuew_crgqhrijgt[address], [place], [address], Ph [phone]) 11:19:urinalysis, dipstick, autoUnknown Analyte6.0Not UoluewgbkEl689_qpxijphct_kvzcsireaz[address], [place], [address], Ph [phone] 11:19:urinalysis, dipstick, autoUnknown AnalytenegativeNot NraogwyeaAm251_wfzipsvjg_gagcnrflpo[address], [place], [address], Ph [phone]) 11:19:urinalysis, dipstick, autoUnknown Analyte0.2Not BpemypusbHi956_ypnqsekqn_hzkhysdtgmJohnny Ville [address], [place], [address], Ph [phone] 11:19:urinalysis, dipstick, autoUnknown AnalytenegativeNot NczdfeoijYq852_nwnjsugkj_fbkihugxxl[address], [place], [address], Ph [phone]) 11:19:urinalysis, dipstick, autoUnknown AnalytenegativeNot KqjuqgphcNg284_jpxjbddss_vofccykwxaJohnny Ville [address], [place], [address], Ph [phone] 11:19:urinalysis, dipstick, autoUnknown Analytedark yellowNot YcdwoxbuuTo481_ebxreblxs_qnvhmaltslJohnny Ville [address], [place], [address], Ph [phone] 11:19:urinalysis, dipstick, autoUnknown Analyteslightly cloudyNot MgvulagoxPe924_inuatozrh_fuahptyxfrJohnny Ville [address], [address], 05/ 11:19:4204504US, transvaginalNo observation recorded.Lyric [address], [place], [address], 65/ 11:56:0205US, transvaginalNo observation recorded.Zararice [address], [place], [address], 31/ 12:49:29 Result Notes None recorded. Problems No Known Problems Procedures Surgical History Date Name Laterality Status Provider Name and Address Organization Details Recorded Time 09/30/2024 PELVIC EXAMINATION UNDER ANESTHE AARON (SURG) [place] - [facility]10/13/2024 10:14:2504IUD Removal Procedure Note ([facility] [address], [place], [address], [place] [facility]09/09/2024 17:44:3003Nitrous Oxide ([facility])[place] [address], [place], [address], [place] [facility]08/20/2024 16:55:5003IUD Insertion Procedure Note ([facility] [address] [address], [place], [address], [place] [facility]08/20/2024 16:55:3603insertion of intrauterine contraceptive [place] [address] [address], [place], [address], [place] [facility]08/20/2024 16:54:47tymp[place] [address] [facility],[address], [place], [address], [place] - [facility]07/29/2024 12:12:58 Imaging Results None recorded. Procedure Notes None recorded. Medical Equipment None Reported. Allergies No known drug allergies Medications Name Sig Start Date Stop Date Status Note LastModified by Organization Details LastModified Time Mirena 21 mcg/24 hr (up to 8 years) 52 mg intrauterin e device Take 1 device by intrauter ine route. 10/13 completed [address]27 -423- 01 Not Available Not Available Not Available lamotrigine 150 mg tablet TAKE 1 TABLET BY MOUTH ONCE DAILY activeNot AvailableNot AvailableNot Availabledoxycycline hyclate 100 mg capsule TAKE 1 CAPSULE BY MOUTH TWICE DAILYactiveNot AvailableNot AvailableNot Available propranolol 80 mg tabletTAKE 1 TABLET BY MOUTH AT BEDTIMEactiveNot AvailableNot AvailableNot Availablebenztropine 0.5 mg tabletTAKE ONE TABLET (0.5MG) BY MOUTH TWICE DAILY. TAKE IN THE MORNING AND AT BEDTIME.07/29/2024ompletedNot Available Not AvailableNot Availablelamotrigine 200 mg tabletTAKE 1 TABLET BY MOUTH ONCE DAILYactiveNot AvailableNot AvailableNot Availableibuprofen 800 mg tabletTAKE 1 TABLET BY MOUTH THREE TIMES DAILY09/09/2024ompletedNot AvailableNot Available Not Availablepropranolol ER 60 mg capsule,24 hr,extended tnkkntx0207/29/2024 completedNot AvailableNot AvailableNot Availableoxycodone 5 mg/5 mL oral solutionTAKE 5 ML (5 MG) BY MOUTH EVERY 6 HOURS IF NEEDED FOR PAIN.07/29/2024 completedNot AvailableNot AvailableNot Availablelithium carbonate ER 300 mg tablet,extended releaseTAKE 1 TABLET BY MOUTH EVERYDAY AT PNTCIRR4007/27/2024 completedNot AvailableNot AvailableNot Availablemetronidazole 500 mg tabletTAKE 1 TABLET BY MOUTH EVERY 12 HOURSactiveNot AvailableNot AvailableNot Available lithium carbonate ER 450 mg tablet,extended releaseTAKE 2 TABLETS BY MOUTH DAILY AT BEDTIME. TAKE WITH (2) 300MG LITHIUM ER FOR TOTAL OF 1500MG ER.07/29/2024 completedNot AvailableNot AvailableNot Availableketorolac 10 mg tabletTAKE 2 TABLETS BY MOUTH 1 HOUR BEFORE HEVLNTDRF91/09/2025ompletedNot AvailableNot AvailableNot Availableoseltamivir 75 mg capsuleTAKE 1 CAPSULE BY MOUTH TWICE A DAY FOR 5 DAYS5completedNot AvailableNot AvailableNot Available propranolol ER 80 mg capsule,24 hr,extended releaseUSE ONCE DAILY DIRECTED activeNot AvailableNot AvailableNot Availableceftriaxone 500 mg solution for injectionTake 500 mg by injection route.5activeNot AvailableNot AvailableNot Availablefluoxetine 20 mg capsuleTAKE 1 CAPSULE BY MOUTH ONCE DAILY 5completedNot AvailableNot AvailableNot Availablemethylphenidate ER 36 mg tablet,extended release 24 hrTAKE 2 TABLETS BY MOUTH ONCE DAILY FILL ON 09/18/24activeNot AvailableNot AvailableNot Availabledextroamphetamine- amphetamine ER 25 mg 24hr capsule,extend releaseTAKE 1 CAPSULE BY MOUTH IN THE BOYBUWC4607/27/2024ompletedNot AvailableNot AvailableNot AvailableConcertaactive Not AvailableNot AvailableNot Availablelisdexamfetamine 70 mg capsuleTAKE 1 CAPSULE BY MOUTH EVERY DAY IN THE ZGHAHKO77/26/2025completedNot AvailableNot AvailableNot Availablelisdexamfetamine 60 mg capsuleTAKE 1 CAPSULE BY MOUTH EVERY DAY IN THE GCKNDVZ5607/29/2024ompletedNot AvailableNot AvailableNot Availableguanfacine ER 2 mg tablet,extended release 24 hrTAKE 1 TAB BY MOUTH AT VEROGFN24/26/2025completedNot AvailableNot AvailableNot Availablelurasidone 40 mg ufxeeu2407/29/2024ompletedNot AvailableNot AvailableNot Availablelurasidone 80 mg tabletTAKE 1 TABLET BY MOUTH ONCE DAILY WITH AT LEAST 350 CALORIES FOR PROPER IDRUSGJXYA08/26/2025ompletedNot AvailableNot AvailableNot Availablelurasidone 120 mg tabletTAKE 1 TABLET BY MOUTH ONCE DAILYactiveNot AvailableNot Available Not AvailableKyleena 17.5 mcg/24 hr (up to 5 years) 19.5 mg intrauterine device Take by intrauterine route.5activeNot AvailableNot AvailableNot Available Vitals Date Recorded Body height Body mass index (BMI) Body mass index (BMI) [Percentile] Per age and sex Body weight Systolic And Diastolic Provider Name and Address Organization Details Last Updated DateTime 10/13/2024 162.56 cm 44.9 kg/m2 99 % 693093. 76 g 120/78 mm[Hg] Sagrario Urias [employer] 10:25:45 Date Recorded Body height Systolic And Diastolic Provider Name and Address Organization Details Last Updated DateTime 10/23/2024 162.56 cm 120/70 mm[Hg] Marisela Balajiabdulazizteodora [place] - Cindy dagoberto [employer] 10/23/2024 11:03:42 Date Recorded Body height Body mass index (BMI) Body mass index (BMI) [Percentile] Per age and sex Body weight Systolic And Diastolic Provider Name and Address Organization Details Last Updated DateTime 11/27/2024 162.56 cm 43.3 kg/m2 99 % 392437. 28 g 128/73 mm[Hg] Jordana Monroedir (TERMED) [facility] [employer] 15:10:42 Social History Question Answer Notes LastModified by Organization D etails LastModified Time Tobacco Smoking Status [place] [address] [facility],[address], [place], [address], [facility]07/29/2024 18:25:03What Is Your Level Of Caffeine Consumption?ModerateaalmdaleInformation not gkjzvzboi21/26/2025What Is Your Relationship Status?SingleaalmdaleInformation not tckgrspad67/26/2025re You Currently In School?YesaalmdaleInformation not cbgviphyl90/26/2025 Sex: Unknown Functional Status Question Answer Note LastModified by Organization D etails LastModified Time Do you use any illicit or recreational drugs? No aalmdaleInformation not hlasgkord44/26/2025What is your level of alcohol consumption?NoneaalmdaleInformation not esufwbyun81/26/2025What is your exercise level?NoneaalmdaleInformation not eucinjomu63/26/2025 Mental Status None recorded. Family History Relationship Description Onset Age of this Age Resolved Age Notes LastModified by Organization Details LastModified Time Maternal Grandmother Parkinson's disease umhlme3Rvz ghclbenym51/20/2025 14:43:41Maternal GrandmotherMalignant neoplasm of breastaalmdaleNot euebwqaet00/26/2025 18:26:54Paternal GrandfatherDiabetes mellitusaalmdaleNot rpvlfzijp91/26/2025 18:26:33FatherAttention deficit hyperactivity disorder, predominantly inattentive jjtbmyxuba7Yif available 08/20/2024 14:43:42 Medical History Condition Response Psych- Depression Y Psych- ADD Y Psych- Anxiety Disorder Y Psych- Bipolar Disease Y Gynecological History Statement/Question Response Sexually Active N Current Control Method IUD Menstrual Cycle Length (days) 28 Age at Menarche: 11 Date of LMP 10/11/2024 Obstetrics History GPAL:G 0 P 0 0 0 0 Immunizations Vaccine Type Date Status Note Provider Nam e and Address Organization Details Recorded Time Influenza, split virus, quadrivalent, preservative completed Linette [place] null, [place] - [facility]01/10/2024 11:40:49Hib-Hep B009/25/2004completKelly [place] null, [place] [facility]01/10/2024 11:40:49Hib-Hep B001/01/2005completKelly [place] [facility]01/10/2024 11:40:99NKW99completKelly [place] [facility]01/10/2024 11:40:66CKH39completKelly [place] [facility]01/10/2024 11:40:90YDI92completKelly [place] [facility]01/10/2024 11:40:45EIQ89completKelly [place] [facility]01/10/2024 11:40:49Influenza, live, trivalent, intranasal, PF 02/08/2012completKelly [place] [facility]01/10/2024 11:40:05YMV81comPedro Luis [place] [facility]01/10/2024 11:40:81ZNF47comPedro Luis [place] [facility]01/10/2024 11:40:49pneumococcal conjugate PCV 7009/25/2004 Danial [place] [facility]01/10/2024 11:40:49[facility]ococcal [facility] [place] [facility]/10/2024 11:40:49pneumococcal conjugate PCV [facility] [place] [facility] [facility]01/10/2024 11:40:49pneumococcal conjugate PCV [facility] [place] [facility]01/10/2024 11:40:98Riue04completKelly [place] [facility]01/10/2024 11:40:49Novel Bpeahnbvl-Y4P6-38, all formulations 04/23/2009completKelly [place] [facility]01/10/2024 11:40:49Novel Iavqywmvx-W6N2-93, all formulations 06/02/2009completKelly [place] [facility]01/10/2024 11:40:40mactqkosw32/02/2006completKelly [place] [facility]01/10/2024 11:40:46abwawrnkg79/30/2010completKelly [place] [facility]01/10/2024 11:40:49Influenza, split virus, trivalent, mozdpagksitb20/03/2006completKelly [place] [facility]01/10/2024 11:40:49Influenza, split virus, trivalent, ofczemfiuexc01/30/2010comPedro Luis [place] [facility]01/10/2024 11:40:49Influenza, split virus, trivalent, /08/2005comPedro Luis [place] [facility]01/10/2024 11:40:49Influenza, split virus, trivalent, mosoewtzxbgr74/16/2006completKelly [place] [facility]01/10/2024 11:40:49Influenza, split virus, trivalent, PF 05/23/2016completKelly [place] [facility]01/10/2024 11:40:49Hep B, adolescent or yaannbtvh89/20/2006 completedLinette [place] [facility]01/10/2024 11:40:49Hep A, ped/adol, 2 dose07/15/2006completed Linette [place] [facility]01/10/2024 11:40:49Hep A, ped/adol, 2 dose09/15/2007completed Linette [place] [facility]01/10/2024 11:40:49Meningococcal CMF8V4011/10/2020ompleted Linette [place] [facility]01/10/2024 11:40:49meningococcal YMN3Z6812/07/2016completed Linette [place] [facility]01/10/2024 11:40:36BVaN2509/25/2004completKelly [place] [facility]01/10/2024 11:40:96YPtU7001/01/2005completKelly [place] [facility]01/10/2024 11:40:85HEjM9502/19/2005completKelly [place] [facility]01/10/2024 11:40:79PUoQ31completKelly [place] [facility]01/10/2024 11:40:49DTaP-Hib01/04/2006completElizabethmark Von null[place] [facility]01/10/2024 11:40:49Influenza, split virus, quadrivalent, PF 01/29/2018completedSmisael [place] null[place] [facility]01/10/2024 11:40:50Influenza, split virus, quadrivalent, PF 03/13/2019completGOLDY Vega - [facility]01/10/2024 11:40:50Influenza, split virus, quadrivalent, PF 03/22/2017completGOLDY Vega - [facility]N01/10/2024 11:40:50 Past Encounters Encounter ID Performer Location Encounter Start Date Encounter Closed Date Diagnosis/Indication Diagnosis SNOMED-CT Code Diagnosis ICD10 Code Diagnosis IMO Codes Diagnosis Note [id number] Caterina Smith CNM [id number] [place] [address] 01/10/2024 10:59:35 01/10/2024 14:35:37 Gynecologic examination 89066449 Z01.419 - Exam normal and appropriate for age. Next annual exam in one year.- Encouraged breast self-awareness.- Encouraged regular exercise and healthy diet.- Calcium and vitamin D intake discussed.- Discussed cervical cancer screening guidelines. - STI screening and prevention discussed.[id number] MENDOZA MD [id number]_ORLGL [address] [place] [address] 07/29/2024 11:23:1803 11:30:09Premenstrual tension cgutmetl12702837F37.3 60198 pre and post cycle aware that she will sill ovulate with IUD, likely will not take away premenstrual symtpoms.Aware that for some people, OCP, nuvaring, nexplanon etc that causes ovarian suppression and decreases ovulation can improve moods arounds cycles Contraceptive use bwoesaqhu04412901V05.09 [id number] Discussed Mirena, Kyleena, and Paragard IUD's. Discussed common side effects and risks of each. Reviewed common bleeding patterns. Discussed the insertion process. Recommend she check insurance coverage prior to insertion. If she wants to proceed, she will call for an appointment during her menses.Planning Mirena IUD. discussed options for pain management around IUD insertion including-insertion in OR under sedation (likely more costly with facility fee and anesthesia, benefit wouldbe asleep)-toradol and valium/ativan for cramping and anxiety (needs tilt tray driver)-toradol (help with cramping), nitrous (copay, but improves pain and anxiety with pelvic exam/IUD insertion)-paracervical blod (may help with tenaculum placement, possible with IUD insertion) pt would like nitrous and toradol. sentPreoperative vmdpa60328744H07.9 [id number] MENDOZA [id number]_UFWEMWVKX_SFXQV [address] [place] [address] 08/20/2024 14:41:18008/20/2024 16:43:11Insertion of intrauterine contraceptive rphvme81862920C00.430 758014 Consent for use of self-administered Nitrous oxide (also known as ???laughing gas?? ) and oxygen analgesia was obtained. These are self?? administered gases that are breathed and inhaled. The indications, contraindications, risks, and benefits were reviewed. She denies contraindications to nitrous oxide use and wishes to proceed. r/b discussed, inserted without issues. DIscussed irregular bleeding profile with IUD [id number] Smith, [id number] [address] 09/04/2024 13:45:25009/04/2024 14:36:72Czku63978696M38.84XA [id number] Labs and pelvic US pending, will advise pt of results when available. No pain with pelvic exam. IUDseems to be in proper location. Will discuss options further after US completed.[id number] MARIAHKENDRA [id number]_[id number] [address] 09/09/2024 16:13:10009/16/2024 16:59:12Pain in mawknq56301633Z40.2 98340 [id number] YU [address] [address] 09/09/2024 16:52:54009/09/2024 17:54:44Malposition of intrauterine contraceptive uwvtnd82667642105219976C09.32XA [id number] Surgery Schedulin. Surgery: EUA, Kyleena IUD insertion under formal ultrasound guidance2. Reason/indication: h/o malpositioned Mirena, anxiety, MDD, bipolar3. Electric Meter Reader?: no4. Anesthesia: MAC, local5. Location/admission status: [facility] vs [facility]6. Time: 45 minutes7. Instruments: Kyleena IUD, formal ultrasound8. Rep?: no9. Antibiotics?: none mjfczxlqo92. Preop: with PH11.FMLA/time Off:12. Scheduling TIER: (1=within 1 week, 2=within 1 month, 3-within next several months): 1-213.Post op: 6-8 weeksPain in wmuuzc28437133R91.2 22267 Break-through licwrrlk40303272Q07.1 Z97.5 [id number] Removal of intrauterine contraceptive ffwzac8260826694X32.305 [id number] GIGI FUIB562_DOTMNTGCR_YSOOO [address] [place], [place] [address] [place] [address] 09/17/2024 14:33:04009/17/2024 15:26:19Pain in ndmcuq57894124A79.2 47053 [id number] Maryse WELCH, [id number] [place] [address] 10/13/2024 10:19:50010/13/2024 12:23:17Female pelvic inflammatory disease [id number] 62395 See below.Pain in naezye01886654K20.2 84774 Discussed pelvic pain and possible causes. Reviewed labs, imaging and notes from ED last week. Discussed U/S in ED last week showed no abnormalities and IUD in correct position. Discussed possibilityof UTI - will plan UA/UC today. No issues with bowels. Discussed possibility of PID from IUD insertion (no concern for GC/Chlam given no sexual activity) given IUD insertion, pain and mild CMT. Will empirically treat with antibiotics above. She will call if worsening pain, fever, N/V, inability to take antibiotics. She will f/u as scheduled Saturday and will repeat U/S here at that time as well. Discussed all with patient and she understands/agrees with plan.[id number] DAVID JAQUA, DO [id number] [place] [address] 10/23/2024 09:54:0910/23/2024 11:02:42Pain in bmhngw32530961O90.2 01186 [id number] CHERYL THOMAS, [id number] [place] [address] 10/23/2024 10:59:0910/23/2024 13:42:25Female pelvic inflammatory disease [id number] 52729 S/p antibiotics. Symptoms have resolved completely. Doing wellFollow up as neededIntrauterine contraceptive device in drwj842857754T07.431 [id number] Reviewed US findings with patient. IUD in correct location. Left tip extended slightly into myometrium but patient now asymptomatic. Reviewed that this does not affect efficacy.[id number] YU, [id number] [address] 11/27/2024 14:56:01011/27/2024 16:12:12Intrauterine contraceptive device in situ [id number] [id number] Scupjfvexipm282249822D79.6 73910 Health Concerns Section Related Observation LastModified by Organization Detai ls LastModified Time None Recorded Concern Status LastModified by Organization Details LastModified Time None Recorded Advance Directives Directive None Recorded Payers Insurance Date Sequence Insurance Name Policy Number Policy Orosco Covered Member ID Orosco Member ID Guarantor Name 12/02/2024 1 [employer] - OPEN ACCESS CHOICE ([employer]) [id number] Minal Herrera [id number] Minal Herrera Notes Date Note Type Note Provider Name and Address Orga nization Details Recorded Time 09/17/2024 text/html ROS as noted in the HPI Casa is a 19yo G0 who presents to discuss her upcoming procedure. She is scheduled for an EUA, Kyleena IUD insertion with formal ultrasound guidance at [facility] 09/30/24 at 10:30am. Her only question is can her surgery be moved up to this Saturday, 09/21. She is s/p uncomplicated removal of a malpositioned Mirena IUD 09/09/24. She was additionally having abdominopelvic pain and AUB. Since removal, she has been doing okay. The bleeding stopped 2 days ago, but she is still having a lot of cramping, like every 50 seconds or minute I am having really bad cramping. She is taking tylenol and ibuprofen with little relief. She states it was really really bad yesterday to the point she could not drive and she had to wool puller. She denies constipation, diarrhea, [place] [id number], [place], [address], [place] - [facility]09/17/2024 15:10:text/html Patient presents today for evaluation of pain after IUD insertion. She had Mirena IUD placed in clinic on 08/20/24 for period control. She had pain after insertion andIUD was removed on 09/09/2024 due to malpositioning. She then had Kyleena IUD placed under anesthesia with U/S guidance on 09/30/2024. Reviewed op note. She did well after procedure for the 1st week. No bleeding or pain. About 1 week ago, started havingpelvic cramping/pain. The pain is daily but comes and goes. It is sharp cramping. She started a period (light) on 10/11/24. She was seen 10/08/24 in ED and had normal U/S (normal ovaries and IUD in position). Hgb was 12, UPT was negative, WBC 13.2. She denies fevers, chills, N/V, constipation/diarrhea, pain with urination. She otherwise feels well. She is not sexually active and has never been sexually active. She has been using midol and ibuprofen 400 [place] [id number], [place], [address], [place] - [facility]10/13/2024 12:12:38010/23/2024text/htmlROS as noted in the HPI 19 yo presenting for follow up. She had Mirena IUD placed in clinic on 08/20/24 for period control. She had pain after insertion andIUD was removed on 09/09/2024 due to malpositioning. She then had Kyleena IUD placed under anesthesia with U/S guidance on 09/30/2024. Then had pain again. She was seen 10/08/24 in ED and had normal U/S (normal ovaries and IUD in position). Was treated for presumed PID with ceftriaxone and doxycycline. Reports feeling better, denies any pelvic pain. Has had some irregular spotting. Pelvic US today: uterus 6.6 x 3.3 x 3.9 cm, endometrium 2.61 mm, left tip extends to myometrium. Ovaries with multiple follicles along the periphery Graduates from [employer] school next week. Then moving [place] [id number] [facility],[address], [place], [address], [place] - [facility]10/23/2024 13:32:0806text/htmlROS as noted in the HPI Minal is a 19yo G0, LMP 11/25/24, who presents for an IUD check due to cramping since 11/17. She reports this is the worst cramping, more than typical period cramping, she has ever had. She has taken ibuprofen as needed, when she has the cramping, and not scheduled. She has taken ibuprofen 800mg x 1 today. At times, she reports the pain has been a 10/10. She denies fevers, chills, nausea, emesis, diarrhea, constipation or dysuria. She has not tried to feel her strings. She has not had sex since her IUD was placed. Of note, this is her 4th visit since her Kyleena was placed 09/30 in the OR. She was actually seen 10/09 in the ER for pelvic pain. Ultrasound confirmed appropriate, fundal, intrauterine location. She was then seen 10/13 and due to pelvic pain and mild CMT, she was treated empirically for PID. She reports the antibiotics did not help at all. She then followed up 10 days later, 10/23, and had an ultrasound which showed her IUD was in the correct location and had no adnexal pathology. Of note, she didtell the provider that her symptoms resolved at that time. She declines having her [place] [id number] [facility],[address], [place], [address], [place] - [facility]11/27/2024 16:07:52 OBGyn Episode No OBEpisode recorded.
--- OUTSIDE RECORDS SUMMARY | 2025-05-24 16:33 | XMS_ITS | Clinical Summary ---
Author Organization [facility] Address [address] [place] [address]. [place] [address] Care Team Providers Care Vulcanizer Rubber Plate Name Role Phone Kelsie Adairadam Dueñas NP Primary Care Provider [phone] Allergies No known active allergies Medications MedicationSigDispense QuantityRefillsLast FilledStart DateEnd DateStatus propranolol ER (INDERAL LA) 60 MG 24 hr capsule Take 80 mg by mouth daily.01/15/2022ctive lurasidone (LATUDA) 80 MG TABS tablet Take 120 mg by mouth daily.Active lamoTRIgine (LAMICTAL) 200 MG tablet Take 350 mg by mouth daily.2Active Methylphenidate HCl (CONCERTA PO) Take by mouth.Active methylphenidate HCl ER, OSM, (CONCERTA) 36 MG CR tablet Take 36 mg by mouth every morning.Active ibuprofen (ADVIL/MOTRIN) 800 MG tablet Indications:Encounter for IUD insertionTake 1 tablet (800 mg) by mouth every 6 hours as needed for other (mild and/or inflammatory pain). 30 tablet 5Active acetaminophen (TYLENOL) 325 MG tablet Indications:Encounter for IUD insertionTake 3 tablets (975 mg) by mouth every 6 hours as needed for mild pain. 50 tablet 5Active Immunizations ImmunizationAdministration DatesNext DueInfluenza (H1N1)06/02/2009 Social History Tobacco UseTypesPacks/DayYears UsedDateSmoking Tobacco: NeverSmokeless Tobacco: Never Tobacco Cessation:Counseling Given: Not Answered Alcohol UseStandard Drinks/WeekCommentsNot Currently0 (1 standard drink = 0.6 oz pure alcohol)Adolescent EducationAnswerDate RecordedGetting School Help Needed Not on file07/02/2023Interpersonal SafetyAnswerDate RecordedDo you feel physically and emotionally safe where you currently live?Yes09/30/2024Within the past 12 months, have you been hit, slapped, kicked or otherwise physically hurt by someone?No09/30/2024Within the past 12 months, have you been humiliated or emotionally abused in other ways by your partner or ex-partner?No09/30/2024 CommentsNoSex and Gender InformationValueDate RecordedSex Assigned at BirthNot on fileLegal SrdIuktiv40/04/2012 4:36 AM CSTGender IdentityNot on file Sexual OrientationNot on file Last Filed Vital Signs Vital SignReadingTime TakenCommentsBlood Zwlyxhrw322/7910/08/2024 5:00 PM CDT Whloh7193/08/2025 5:00 PM NBGKohfgnnjqxf90.3 ??C (99.2 ??F)10/08/2024 5:00 PM CDTRespiratory Xuxk421610/08/2024 5:00 PM CDTOxygen Udqukoheyc809%10/08/2024 5:00 PM CDTInhaled Oxygen Concentration--Gcnsrx027.3 kg (260 lb 12.8 oz)10/08/2024 5:00 PM EUXzxvqyJaaebt318.6 cm (5' 4)10/08/2024 5:00 PM CDTBody Mass Index44.77 10/08/2024 5:00 PM CDT Plan of Treatment Health MaintenanceDue DateLast DoneCommentsADVANCE CARE NVPPVVOW48/28/2005ANNUAL REVIEW OF YDYQJB27 2004HPV VACCINE (1 - 3-dose series)2019MENINGITIS B VACCINE (1 of 2 - Standard)2020HEPATITIS C WEHQCWVHN37/28/2023PHQ-2 (once per calendar year)5YEARLY PREVENTIVE VISIT/02/2024, 02/01/2022, 1COVID-19 VACCINE ( - season)2025INFLUENZA VACCINE (#1)/04/2019, 01/29/2018, 03/22/2017, Additional history existsCHLAMYDIA MWKCLXOZL17/04/364562/09/2024DTAP/TDAP/TD VACCINE (7 - Td or Tdap), 04/01/2010, 01/04/2006, Additional history exists ZOSTER VACCINE (1 of 2)2054HEPATITIS B XZLJJTZGmmlihfxi22/20/2006, 01/01/2005, 2004PNEUMOCOCCAL VACCINE: PEDIATRICS (0 to 5 YEARS) AND AT- RISK PATIENTS (6 to 49 YEARS)Aged Out01/04/2006, 02/19/2005, 01/01/2005, Additional history existsNo longer eligible based on patient's age to complete this topicMENINGITIS ROZQVAARpzuzqtll85/10/2021, 12/07/2016HIV SCREENING Acpuctqvu80/31/2022 Goals GoalPatient Goal TypeAssociated ProblemsRecent ProgressPatient-Stated?Author MYC ECC SURG ENROLL Care PlanMary [facility] ECC SURG ENROLLNoRosendo Hernandez Medical Devices ImplantedTypeAreaManufacturerDevice IdentifierShelf Expiration DateModel / Serial / LotKyleena Implanted:Qty: 1 on 09/30/2024 by [facility]Contraceptive DeviceN/A: [id number]/31/2027/ / [id number] Procedures Procedure NamePriorityDate/TimeAssociated DiagnosisCommentsHC CHLMYD TRACH, DNA, AMP LGGOFWmkerfv73/04/2025 1:17 PM CDT Pain due to genitourinary prosthetic devices, implants and grafts, initial encounter from Last 3 Months or Most Recently Relevant to Health Maintenance Results * Chlamydia trachomatis/Neisseria gonorrhoeae by PCR (09/04/2024 1:17 PM CDT) ComponentValueRef RangeTest MethodAnalysis TimePerformed AtPathologist SignatureChlamydia BitqrmwrlaaNpgwnpbwUnygrmqh93/05/2025 12:21 PM CDTUU IDD LABORATORYComment: Negative for C. trachomatis rRNA by manufactured buildings repairer mediated amplification. A negative result by manufactured buildings repairer mediated amplification does not preclude the presence of infection because results are dependent on proper and adequate collection, absence of inhibitors and sufficient rRNA to be detected. Neisseria npyjuvhwaatCygyabgzDgtuhoqg72/05/2025 12:21 PM CDTUU IDD LABORATORY Comment:Negative for N. gonorrhoeae rRNA by manufactured buildings repairer mediated amplification. A negative result by manufactured buildings repairer mediated amplification does not preclude the presence of C. trachomatis infection because results are dependent on proper and adequate collection, absence of inhibitors and sufficient rRNA to be detected.CTNG Specimen HlezouHbmigg07/05/2025 12:21 PM CDT UU IDD LABORATORYSpecimen (Source)Anatomical Location / LateralityCollection Method / VolumeCollection TimeReceived TimeSwabTOPOGRAPHY UNKNOWN / UnknownNon- blood Collection / Pjhsmhj5709/04/2024 1:17 PM CDT09/04/2024 4:00 PM CDT Narrative Authorizing ProviderResult TypeResult StatusCaterina Smith CNMLAB - MICRO GENERAL ORDERABLESFinal ResultPerforming OrganizationAddressCity/State/ZIP Code Phone Number [facility] Inf. Diseases Diag. Lab [address] [facility], [address] [place], [place] [phone] from Last 3 Months or Most Recently Relevant to Health Maintenance Additional Health Concerns Active ProblemsNoted DateDiagnosed DateMyC ECC SURG QTSBYS6509/23/2024 Insurance * Guarantor: TALI HERRERA TypeRelation to PatientDate of BirthPhone Billing AddressPersonal/OweeskHsgsjw19/23/1977 [place] [address] * Guarantor: Minal HerreraAccount TypeRelation to PatientDate of PhoneBilling AddressPersonal/TrchxqVhsd88/28/2005 [place] [address] * Guarantor: TALI HERRERA TypeRelation to PatientDate of BirthPhone Billing AddressPersonal/QqwgggAmftvp93/23/1977 [place] [address] * Guarantor: Minal HerreraAccount TypeRelation to PatientDate of PhoneBilling AddressPersonal/MdhsxmPbra47/28/2005 [place] [address] Care Teams Team MemberRelationshipSpecialtyStart [place] [address] [address] [place] [address] PCP - GeneralFamily Medicine09/16/24
--- OUTSIDE RECORDS SUMMARY | 2025-05-24 16:33 | XMS_ITS | Clinical Summary ---
Author Organization [facility] Address [address] [place] [address] Care Team Providers Care Buckle Strap Drum Operator Name Role Phone Unavailable Primary Care Provider Unavailabl e Source Comments Patient records contain information from all sites at [facility]. For routine questions regarding patient records, call [phone] during business hours, M-F 8:00 AM - 5:00 PM Central Time. Record requests for emergency care only can be directed to [phone] at any time.[facility] Medications * This document contains information received from the source organization and may not represent a complete record from that organization. MedicationSigDispense QuantityRefillsLast FilledStart DateEnd DateStatus methylphenidate HCl 54 mg ER tablet Take 72 mg by mouth every morning.Active lurasidone (Latuda) 80 mg tablet Take 120 mg by mouth daily with morning meal. Administer with food (at least 350 calories)Active lamoTRIgine (LaMICtaL) 150 mg tablet Take 150 mg by mouth daily.Active lamoTRIgine (LaMICtaL) 200 mg tablet Take 200 mg by mouth daily.Active propranolol XL 80 mg 24 hr capsule Take 80 mg by mouth at bedtime.Active Active Problems ProblemNoted DateDiagnosed DateBipolar I Mixed Cejguywc77/07/2017Attention Deficit Disorder Combined Type01/07/2017 Immunizations ImmunizationAdministration DatesNext Dueinfluenza vaccine quad (FLUZONE/FLUARIX) (6 months and older)(PF)03/22/2017 Social History Tobacco UseTypesPacks/DayYears UsedDateSmoking Tobacco: NeverAHC UtilitiesAnswer Date RecordedIn the past 12 months has the electric, gas, oil, or water company threatened to shut off services in your home?No03/25/2024Hunger Vital SignAnswer Date RecordedWithin the past 12 months, you worried that your food would run out before you got the money to buymore.Never true03/25/2024Within the past 12 months, the food you bought just didn't last and you didn't have money to get more.Never true03/25/2024RAPARE - TransportationAnswerDate RecordedIn the past 12 months, has lack of transportation kept you from medical appointments or from getting medications?No03/25/2024In the past 12 months, has lack of transportation kept you from meetings, work, or from getting things needed for daily living?No03/25/2024ostpartum DepressionAnswerDate RecordedPHQ-9 Total Score (max 27)141Housing StabilityAnswerDate RecordedWhat is your living situation today?I have a steady place to live03/25/2024Comments UnknownSex and Gender InformationValueDate RecordedSex Assigned at BirthNot on fileLegal CanNckyzp60/27/2017 1:14 PM CDTGender IdentityNot on fileSexual OrientationNot on file Last Filed Vital Signs Vital SignReadingTime TakenCommentsBlood Ehmexgfm979/7003/25/2024 7:25 AM CDT Sxrgy464103/25/2024 7:25 AM CDTTemperature--Respiratory Rate--Oxygen Saturation-- Inhaled Oxygen Concentration--Ghghkq055 kg (250 lb 10.6 oz)03/25/2024 7:25 AM CDTshoes ogAmnkrm719.5 cm (5' 5.95)03/25/2024 7:25 AM CDTshoes onBody Mass Index40.5303/25/2024 7:25 AM CDT Plan of Treatment Health MaintenanceDue DateLast DoneCommentsChlamydia and Gonorrhea Screening 2004Hearing Screening during Well Child Visit2004Hepatitis C Izawoiubs01/28/2005TB Screening during Well Child Visit week Well Child Check-Up month Well Child Check-Up month Well Child Check-Up month Well Child Check-Up month Well Child Check-Up month Well Child Check-Up month Well Child Check-Up year Well Child Check-Up month Well Child Check-Up year Well Child Check-Up06/30/2007Well Child Check-Up Completed in Past Year year Well Child Check-Up year Well Child Check-Up year Well Child Check-Up year Well Child Check-Up year Well Child Check-Up year Well Child Check-Up06/30/201613 year Well Child Check-Up06/30/201714 year Well Child Check-Up06/30/2018Vision Screening during Well Child Visit year Well Child Check-Up06/30/2019HPV Vaccines (1 - 3-dose series) year Well Child Check-Up year Well Child Check-Up year Well Child Check-Up4Depression Screening (Annual PHQ-2) year Well Child Check-Up06/30/2024Well Child Check-Up ([facility])5COVID-19 Vaccine ( - season)2025Influenza Vaccine (#1), 01/29/2018, 03/22/2017, Additional history existsGlucose Test for Med Pdmsczkxmw34/08/2026 10/08/2024, 08/01/2023, 03/12/2023, Additional history existsDTaP,Tdap,and Td Vaccines (7 - Td or Tdap), 04/01/2010, 01/04/2006, Additional history existsHepatitis B GgphzmxyPsogsiqts32/20/2006, 01/01/2005, 2004Pneumococcal vaccine (0-49 years)Aged Out01/04/2006, 02/19/2005, 01/01/2005, Additional history existsNo longer eligible based on patient's age to complete this topicIPV JjppnwpiFtodbqykq06/30/2010, 06/22/2005, 01/01/2005, Additional history existsMeningococcal WqqaxepQknfixfvl94/10/2021, 12/07/2016HIV JlpmiyrjlXlywqfuwn02/31/2022nemia/Iron Deficiency Screening During Well Child Visit (if High Risk Menstruating Female)Lkrxuhdwl90/29/2024, 07/04/2022, 10/13/2021, Additional history exists Procedures Procedure NamePriorityDate/TimeAssociated DiagnosisCommentsCBC WITH DIFFERENTIAL, BKjobypo58/20/2017 2:51 PM CDT from Last 3 Months or Most Recently Relevant to Health Maintenance Results * (ABNORMAL) CBC with Differential (03/22/2017 2:51 PM CDT)ComponentValueRef RangeTest MethodAnalysis TimePerformed AtPathologist YurobkafiYbaakjxexi92.9 12.2 - 14.8 G/DLLAFOLLETTE MEDICAL CENTERHematocrit38.6 36.3 - 43.4 %LAFOLLETTE MEDICAL CENTERRBC Distrib Width 12.311.2 - 13.5 %[facility] MEDICAL CENTERPlatelet Loxgq458782 - 450 X10(9)/[facility] Leukocytes9.4(H)4.1 - 8.9 X10(9)/[facility]ALTH[facility]ENeutrophils5.591.80 - 8.00 X10(9)/[facility]ALTH[facility]EEosinophils0.320.00 - 0.50 X10(9)/[facility]ALTH[facility]AREBasophils0.060.00 - 0.20 X10(9)/[facility]EErythrocytes4.694.10 - 5.20 X10(12)/[facility]ALTHCAREMCV82.379.9 - 92.3 FLLAFOLLETTE MEDICAL CENTERLymphocytes2.831.20 - 5.20 X10(9)/[facility]EMonocytes0.600.00 - 0.80 X10(9)/L LAFOLLETTE MEDICAL CENTERSpecimen (Source)Anatomical Location / LateralityCollection Method / VolumeCollection TimeReceived Time 03/22/2017 2:51 PM CDT1 2:51 PM CDT Narrative Authorizing ProviderResult TypeResult StatusPashawnee Kemp D.O.LAB BLOOD ADD-ON Final ResultPerforming OrganizationAddressCity/State/ZIP CodePhone Number [facility] [address] [place] [address], [facility] from Last 3 Months or Most Recently Relevant to Health Maintenance Insurance * Guarantor: Minal HerreraAccount TypeRelation to PatientDate of BirthPhone Billing AddressPersonal/CrdzhiAjdv47/28/2006 [place] [address] * Guarantor: Tali Herrera TypeRelation to PatientDate of PhoneBilling AddressPersonal/WlvpjaCmqctw80/23/1977 [place] [address]
--- OUTSIDE RECORDS SUMMARY | 2025-05-24 16:33 | XMS_ITS | Clinical Summary ---
[facility] Address [address] [place] [address] Care Team Providers Care Truck Driver Flatbed Name Role Phone Self-Referral, Patient MD Primary Care Provider Source Comments You are receiving this document as you are listed as the primary care provider,follow-up provider, or the patient has been referred to you for consultation.This is in compliance with the Medicare and[facility] Hospital[facility] EHR Incentive Program,which states Providers who transition their patient to another setting of careor provider of care or refers their patient to another provider of care shouldprovide summary care record for each transition of care or referral. [facility] Allerg[facility] Active AllergyReactionsCriticalityNoted DateCommentsIbuprofenOther, see comments 07/16/2022 Cant take ibuprofen due to lithium Medications MedicationSigDispense QuantityRefillsLast FilledStart DateEnd DateStatus VYVANSE 50 MG capsule 02/09/2020Active lithium carbonate ER (LITHOBID) 300 MG extended release tablet 02/08/2020Active lamoTRIgine (LAMICTAL) 100 MG tablet PLEASE SEE ATTACHED FOR DETAILED SBNYAPZMCR81/02/2020Active lamoTRIgine (LAMICTAL) 150 MG tablet 02/09/2020Active FLUoxetine (PROZAC) 10 MG capsule TAKE 1 CAPSULE (10 MG) BY MOUTH DAILY THE WEEK BEFORE MENSTRUAL CYCLE02/02/2020 Active FLUoxetine (PROZAC) 20 MG capsule Take 1 Capsule (20 mg) by mouth daily.02/02/2020Active amphetamine-dextroamphetamine (ADDERALL) 10 MG tablet Take 1 Tablet (10 mg) by mouth two times a day.01/19/2020Active doxycycline monohydrate (MONODOX) 100 MG capsule Take 1 Capsule by mouth two times a day. TAKE WITH FOOD. 60 Capsule Active Additional Information Patient not taking.Reported on 07/01/2023 tretinoin (RETIN-A) 0.05 % cream Apply pea-size amount to entire face every other night and slowly increase to nightly use as tolerated. 45 g 1109Active Additional Information Patient not taking.Reported on 07/16/2022 tazarotene (TAZORAC) 0.1 % gel Apply thin coat to acne prone skin QOHS after washing and moisturizer. Increase to QHS as tolerated. 60 g 512Active Additional Information Patient not taking.Reported on 07/16/2022 trimethoprim-polymyxin B (POLYTRIM) 33139-0.1 UNIT/ML-% eye drop solution Place 1 Drop into left eye every 6 hours. 10 mL 12/11/2020ctive Additional Information Patient not taking.Reported on 04/02/2022 propranolol (INDERALLA) 60 MG 24 hour release capsule Take 1 Capsule (60 mg) by mouth daily.03/07/2022ctive ziprasidone (GEODON) 40 MG capsule Take 1 Capsule (40 mg) by mouth every morning.02/10/2022ctive ziprasidone (GEODON) 20 MG capsule Take 1 Capsule (20 mg) by mouth every morning.02/12/2022ctive VENTOLIN HFA 108 (90 Base) MCG/ACT inhaler 2 Puffs every 4 hours as needed.10/14/2021ctive hydrOXYzine HCl (ATARAX) 10 MG tablet Take 1-2 Tablets (10-20 mg) by mouth as needed.02/19/2023ctive lisdexamfetamine (VYVANSE) 60 MG capsule Take 1 Capsule (60 mg) by mouth every morning.05/18/2023ctive lisdexamfetamine (VYVANSE) 70 MG capsule Take 1 Capsule (70 mg) by mouth every morning.06/21/2023ctive Active Problems No known active problems Social History Tobacco UseTypesPacks/DayYears UsedDateSmoking Tobacco: NeverSmokeless Tobacco: Never Tobacco Cessation:Counseling Given: Not Answered CommentsNoSex and Gender InformationValueDate RecordedSex Assigned at BirthNot on fileLegal HyqIhtoxt16/15/2019 5:17 PM CSTGender IdentityNot on file Sexual OrientationNot on file Last Filed Vital Signs Vital SignReadingTime TakenCommentsBlood Myixowst920/69007/01/2023 6:57 PM CIRCLE BEVELER Rybym02434/29/2024 6:57 PM NYUErnoekhxdih25.2 ??C (100.7 ??F)07/01/2023 6:57 PM CSTRespiratory Auxo826407/01/2023 6:57 PM CSTOxygen Butbxxodbw01%07/01/2023 6:57 PM CSTInhaled Oxygen Concentration--Weight--Height--Body Mass Index-- Plan of Treatment Health MaintenanceDue DateLast KpsdLravajsrUugoatkte22/28/2005Hep C Screening (Preventive Services)2004MenB Immunization Jijksfdpbk31/28/2005HPV Vaccine (1 - 3-dose series)2019HIV Screening (Preventive Services)1Adult Preventive Visit2022HepB Vaccine (1)2023OVID-19 Vaccine (1 - season)2025Influenza Vaccine (#1), 01/29/2018, 03/22/2017, Additional history existsDTaP/Tdap/Td Vaccine (7 - Tdap)03/03/2026 03/03/2016, 04/01/2010, 01/04/2006, Additional history existsZoster/Shingles Vaccine (1 of 2)2054Hib AvdudczUxawzaoqb94/04/2006, 01/01/2005, 2004 Pneumococcal VaccineAged Out01/04/2006, 02/19/2005, 01/01/2005, Additional history existsNo longer eligible based on patient's age to complete this topic HepA QdhrsttKupflosdf76/14/2008, 07/15/2006IPV (Polio) VaccineCompleted 04/01/2010, 06/22/2005, 01/01/2005, Additional history existsMCV4 Vaccine Mposxgvnh70/10/2021, 12/07/2016 Insurance * Guarantor: Minal Herrera TypeRelation to PatientDate of BirthPhone Billing AddressPersonal/LajaefGjtl53/28/2006 [facility] [place] [address] * Guarantor: Joy HERRERA TypeRelation to PatientDate of BirthPhone Billing AddressPersonal/NqkvyxIoglkg35/23/1977 [facility] [place] [address] Care Teams Team MemberRelationshipSpecialtyStart DateEnd Date Self-Referral, Patient, [place] [address] PCP - General07/16/22
--- OUTSIDE RECORDS SUMMARY | 2025-05-24 16:34 | XMS_ITS | Clinical Summary ---
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 Name Role Phone Sahara Adair NP Primary Care Provider [phone] Allergies No known active allergies Medications MedicationSigDispense QuantityRefillsLast FilledStart DateEnd DateStatus lithium carbonate (LITHOBID) 300 mg Controlled-Release tablet TAKE 1 TABLET BY MOUTH DAILY IN THE MORNING AND 2 TABLETS BY MOUTH DAILY IN THE RMTSSTZ1208/30/2019Active lithium carbonate (ESKALITH-CR) 450 mg Controlled-Release tablet TAKE 2 TABLETS (900 MG) BY MOUTH AT FMEGNEX8409/24/2020ctive propranolol ER (INDERAL LA) 60 mg Cs24 Sustained-Release capsule TAKE ONE CAPSULE (60MG) BY MOUTH ONCE DAILY01/15/2022ctive ziprasidone (GEODON) 80 mg capsule TAKE 1 CAPSULE (80 MG) BY MOUTH IN THE EVENING WITH FOOD01/12/2022ctive benztropine (COGENTIN) 0.5 mg tablet Indications:Excessive sweatingTake 1 Tablet (0.5 mg) by mouth two times daily.0 02/01/2022ctive oxyCODONE (ROXICODONE) 5 mg/5 mL solution Indications:Sore throatTake 5 mL (5 mg) by mouth every 6 hours if needed for Pain. 60 mL 07/03/2023ctive Active Problems ProblemNoted DateDiagnosed DateBipolar 1 /29/2018 Overview (01/29/2018): Managed by Psych Bdldcttvtyxrd64/28/2017 Immunizations ImmunizationAdministration DatesNext DueAMB Influenza, IIV3 (Age >=3 years) Preserve Free (Flu Clinic Only)10/20/3683LXsD93/30/2010,02/19/2005,01/01/2005, 2004DTaP-HIB (TriHIBIT)01/04/2006HIB-HepB (Comvax)01/01/2005,2004 Hepatitis A (Peds)09/15/2007,07/15/2006Hepatitis B (Peds)06/22/2005Inactivated Polio Wmvizyx5404/01/2010,06/22/2005,01/01/2005,2004Influenza A (H1N1), Wqmwtrmlmag61/31/2009,04/23/2009Influenza, IIV3 (Age 6-35 mos)05/23/2016 Influenza, IIV3 (Age >=3 years)04/01/2010,04/18/2006,06/05/2005,04/10/2005 Influenza, SUW693/04/2019,01/29/2018,03/22/2017Influenza, IIV4 (=>6mos) MDV 04/02/2015Influenza,LAIV4 Live Intranasal (Flumist)02/08/2012MENINGOCOCCAL VACCINE 2 VIAL 2MO-55YO (MENVEO)11/10/2020MMR1,11/02/2005Meningococcal Vaccine (Menactra)12/07/2016Pneumococcal conj 7-Valent (Prevnar 7)01/04/2006, 02/19/2005,01/01/2005,2004Tdap1Varicella Ifjnodj9104/01/2010, 11/02/2005 Family History Medical HistoryRelationNameCommentsADD / ADHDFatherBilateral breast cancer Maternal GrandmotherParkinsonismMaternal GrandmotherAnxiety disorderMother DepressionMotherDiabetesPaternal GrandfatherRelationNameStatusCommentsFather AliveMaternal GrandmotherAliveMotherAlivePaternal Grandfather Social History Tobacco UseTypesPacks/DayYears UsedDateSmoking Tobacco: NeverSmokeless Tobacco: NeverAlcohol UseStandard Drinks/WeekCommentsNever0 (1 standard drink = 0.6 oz pure alcohol)PHQ-2AnswerDate RecordedPHQ-2 TOTAL YTLOR696ocial ConnectionsAnswerDate RecordedFrequency of Communication with Friends and Family Not on file06/03/2021Financial Resource StrainAnswerDate RecordedDifficulty of Paying Living ExpensesNot on file06/03/2021ifficulty of Paying Living Expenses Not on file06/03/2021CommentsNoSex and Gender InformationValueDate RecordedSex Assigned at BirthNot on fileLegal SaxWzkhsy65/16/2017 8:30 AM RIVET STICKER Gender IdentityNot on fileSexual OrientationNot on file Last Filed Vital Signs Vital SignReadingTime TakenCommentsBlood Jycnjdji640/62007/03/2023 1:46 PM RIVET STICKER Vveam966507/03/2023 1:46 PM JFODwedeerawpe72.8 ??C (98.3 ??F)07/03/2023 1:46 PM CSTRespiratory Qmmk772711/28/2021 9:13 AM CDTOxygen Ilzzwqiyip40%07/03/2023 1:46 PM CSTInhaled Oxygen Concentration--[place]705.3 kg (252 lb)07/03/2023 1:46 PM STGWzcqgj674.5 cm (5' 5.16)02/01/2022 9:49 AM CDTBody Mass Index-- Plan of Treatment Health MaintenanceDue DateLast DoneCommentsHPV series for age 9-45 (1 - 3-dose series)2019BMI (ht and wt on same day) for age 18+2022Hepatitis C screening for age 18-7907/31/2022epression screening for age 12+02/01/2023 02/01/2022, 11/10/2020, 01/08/2019, Additional history existsWell Child Check for age 3-/06/2021, 1COVID-19 vaccine series ( - 2024- season)2025Influenza Vaccine (#1), 01/29/2018, 03/22/2017, Additional history existsTetanus Hepatitis B series for 19+Ockusvvbb56/20/2006, 01/01/2005, 2004 Pneumococcal series for age 6-49Aged Out01/04/2006, 02/19/2005, 01/01/2005, Additional history existsNo longer eligible based on patient's age to complete this topicMeningococcal series for age 11-85Zxtiessbw19/10/2021, 12/07/2016HIV for age 15-42Ftosnlvmo37/31/2022 Procedures Procedure NamePriorityDate/TimeAssociated DiagnosisCommentsANTI HIV 1/2Add On 01/31/2022 9:41 AM CDT Screening for HIV (human immunodeficiency virus) from Last 3 Months or Most Recently Relevant to Health Maintenance Results * ANTI HIV 1/2 [91442.0] (01/31/2022 9:41 AM CDT)ComponentValueRef RangeTest MethodAnalysis TimePerformed AtPathologist SignatureHIV-1/HIV-2 ANTIBODY Sxp-SrrkyxlfDng-Cahjiaux11/31/2022 6:59 PM CDTALAPPLETON [facility]IP[facility]-CENTRAL LABORATORYComment:HIV-1 p24 and HIV-1/HIV-2 Ab not detected.Specimen (Source) Anatomical Location / LateralityCollection Method / VolumeCollection Time Received TimeBloodBLOOD SPECIMEN / UnknownButterfly / Wezldpp9201/31/2022 9:41 AM CDT01/31/2022 9:41 AM CDT Narrative Authorizing ProviderResult TypeResult StatusJessica E Adair NPSEND OUTSFinal ResultPerforming OrganizationAddressCity/State/ZIP CodePhone Number [facility] [address] [place] [address], from Last 3 Months or Most Recently Relevant to Health Maintenance Insurance * Guarantor: Minal HerreraAccount TypeRelation to PatientDate of BirthPhone Billing AddressPersonal/XifsckUcyw24/28/2005 [place] [address] * Guarantor: Joy HERRERA TypeRelation to PatientDate of BirthPhone Billing AddressPersonal/SnsvjdUnetqb96/23/1977 [facility] [place] [place] [address] * Guarantor: Tali Herrera TypeRelation to PatientDate of BirthPhone Billing AddressPersonal/XyxkyvNcuejk23/23/1977 [facility] [place] [address] * Guarantor: Tone Herrera TypeRelation to PatientDate of BirthPhone Billing AddressPersonal/LiprltClxm77/28/2005 [facility] [place] [address] Care Teams Team MemberRelationshipSpecial[place] [address] [place] [address] PCP - GeneralNurse 09/14/19
[2025-05-24 16:58] VITALS: BP 144/86; PULSE 84; RESP 20; TEMP 36.3; O2SAT 98; BMI 42.4
--- NOTE | 2025-05-24 19:05 | ED.ABDPAIN ---
HPI - Abdominal Pain General Date Seen: 05/24/25 Chief Complaint: Abdominal Pain Stated Complaint: Cramping in abdomen Time Seen by Provider: 05/24/25 19:05 Source: patient, RN notes reviewed and old records reviewed Mode of arrival: ambulatory Limitations: no limitations History of Present Illness HPI narrative: Minal is a very pleasant 19-year-old female with history of abdominal pain since IUD is insertion earlier this year who comes to the emergency room for abdominal pain. Patient notes that the abdominal pain today started approximately 1000 hours. She describes it as like a contraction in her lower pelvis. It comes and goes. States in the past it would only come once a month but now it seems like it is more frequent. This 1st started happening after Delmis IUD insertion in September 2024. She states that she had increased pain and it was decided that the rafael was too big and she had a removed. In October she had an IUD inserted under anesthesia and she states this was much better. However she started experiencing low pelvic pain. She has had a previous ultrasound which was reassuring. She was seen once at the ER and [facility] and then she had the appointment with kirt العراقي in [place]. She was told that everything looked okay and she was given ibuprofen. Clearly Stephanie is very frustrated a continuing to feel discomfort. She comes in wondering if she maybe has endometriosis or ovarian cyst as her mother has some. I am honest with Minal stating that I would not remove her IUD tonight nor can I tell her if she has endometriosis. I am very willing to check her blood work and order pelvic ultrasound to ensure that there has been no migration of the IUD, or evidence of a ovarian cyst. She agrees with this. Jocelyn denies any sexual activity, vaginal discharge, back pain, dysuria hematuria. Related Data Home Medications ?Medication ?Instructions ?Recorded ?Confirmed lamotrigine 150 mg tablet 150 mg PO DAILY 11/05/23 05/24/25 lamotrigine 200 mg tablet 200 mg PO QDAY 11/05/23 05/24/25 lurasidone 80 mg tablet 80 mg PO DAILY 11/05/23 05/24/25 propranolol 80 mg capsule,24 80 mg PO DAILY 11/05/23 05/24/25 hr,extended release methylphenidate HCl 36 mg 72 mg PO QAM 05/24/25 05/24/25 tablet,extended release 24 hr Allergies Allergy/AdvReac Type Severity Reaction Status Date / Time No Known Drug Allergies Allergy Verified 05/24/25 16:57 Review of Systems Status of ROS Reports: 6 or more systems reviewed and unremarkable except as noted in History and below Const Denies: fever or chills ENMT Denies: nasal congestion Cardio Denies: chest pain or shortness of breath with exertion Resp Denies: shortness of breath or cough GI Reports: abdominal pain; Denies: nausea, vomiting, diarrhea, constipation or blood in stool Denies: painful urination or urinary frequency Musculo Denies: back pain PFSH PFSH Medical History Uvulitis ?K12.2 - Cellulitis and abscess of mouth (ICD-10) Sore throat ?J02.9 - Acute pharyngitis, unspecified (ICD-10) Surgical History No significant past surgical history Social History Smoking Status: Never smoker Do you use any of these nicotine containing products: None Second hand tobacco smoke exposure: No How often do you have a drink containing alcohol: never How often do you have six or more drinks on one occasion: Never AUDIT-C Alcohol total score: 0 Non-prescribed substance use: denies use Exam Narrative: Exam Narrative: Alert and oriented. Nontoxic in appearance. External ears eyes nose clear. Heart with regular rate and rhythm and lungs are clear. No CVA tenderness with percussion. Abdomen is soft nontender at this time. No right lower quadrant tenderness. No masses are palpated. Moving all extremities without difficulty. No peritoneal signs. Const: Vital Signs, click to edit/add: Vital Signs - 24 hr 05/24/25 16:58 05/24/25 19:41 05/24/25 21:54 Temperature 97.3 F L 97.8 F Pulse Rate [Pulse Oximeter] 84 89 81 Respiratory Rate 20 18 18 Blood Pressure [Ri ght Upper Arm] 144/86 H 137/76 142/90 H Pulse Oximetry 98 100 99 Oxygen Delivery Me thod Room Air Room Air Room Air Documenting provider has reviewed patient's vital signs: yes Course Course ED Course: Differential diagnosis includes but is not limited to constipation, IBS, UTI, ovarian cyst, ovarian cyst rupture, ovarian torsion, IUD migration. At this time patient is not sexually active and has not been and has no vaginal discharge and thus I do not think we are dealing with an STI. Will obtain CBC, comprehensive, CRP, lipase, as well as pelvic ultrasound. Will give patient dose of Toradol 15 mg IV. Reevaluation(s) Reevaluation #1: Patient does appear objective the improved in regards to discomfort. Vital Signs Vital signs: Initial Vital Signs Temperature 97.3 F L 05/24/25 16:58 Temperature Source Temporal Artery Scan 05/24/25 16:58 Pulse Rate 84 05/24/25 16:58 Respiratory Rate 20 05/24/25 16:58 Blood Pressure 144/86 H 05/24/25 16:58 Blood Pressure Mean 105 05/24/25 16:58 Pulse Oximetry 98 05/24/25 16:58 Oxygen Delivery Method Room Air 05/24/25 16:58 Vital Signs Temperature 97.3 F L 05/24/25 16:58 Pulse Rate 84 05/24/25 16:58 Respiratory Rate 20 05/24/25 16:58 Blood Pressure 144/86 H 05/24/25 16:58 Pulse Oximetry 98 05/24/25 16:58 Oxygen Delivery Method Room Air 05/24/25 16:58 Temperature 97.8 F 05/24/25 21:54 Pulse Rate 81 05/24/25 21:54 Respiratory Rate 18 05/24/25 21:54 Blood Pressure 142/90 H 05/24/25 21:54 Pulse Oximetry 99 05/24/25 21:54 Oxygen Delivery Method Room Air 05/24/25 21:54 Medications Administered Medications: Discontinued Medications Generic Name Dose Route Start Last Admin Trade Name Freq PRN Reason Stop Dose Admin Ketorolac Tromethamine 15 mg 05/24/25 19:19 05/24/25 19:35 Ketorolac 15 Mg/Ml Inj IVP 05/24/25 19:20 15 mg ONCE ONE Administration MDM - Abdominal Pain MDM Narrative Medical decision making narrative: 1. Abdominal pain-patient has had ongoing intermittent abdominal pain after insertion of IUD. IUD appears to be in appropriate place tonight. She really has no other symptoms tonight to suggest infection, STI. I do suggest follow-up with her primary MD. She may need to have this removed and alternate means to manage her menometrorrhagia. Patient did depart without leaving urinalysis but she has no urinary symptoms tonight. 2. Anemia-hemoglobin is 10.7. MCV is low at 67 and thus I do suspect it is likely iron deficiency. Would have her follow-up with her primary MD for recheck. 3. Disposition-patient is discharged home. She is very frustrated at not having answers tonight. I did explain that I would try to rule out emergencies but delicate diagnoses such as endometriosis needs to be evaluated through her specialist. She voices understanding. Return as needed for worsening symptoms. Medical Records Attestation: I reviewed the patient's medical records. Lab Data Attestation: I reviewed the patient's lab results. Labs: Lab Results 05/24/25 Range/Units 19:32 WBC 10.64 (4.50-11.00) K/uL RBC 5.23 H (4.00-5.20) m/uL Hgb 10.7 L (12.0-16.0) gm/dL Hct 35.0 (33.0-51.0) % MCV 67 L (80-100) fL MCH 21 L (26-34) pg MCHC 31 L (32-36) gm/dL RDW Coeff of Machelle 17.0 H (11.5-15.5) % Plt Count 439 (140-440) K/uL Neut % (Auto) 61.6 (42.0-72.0) % Lymph % (Auto) 31.5 (20-44) % Jackson % (Auto) 5.4 (0.0-11.0) % Eos % (Auto) 0.8 (0.0-7.0) % Baso % (Auto) 0.5 (0.0-3.0) % Neut # (Auto) 6.56 (1.7-7.0) K/uL Lymph # (Auto) 3.35 H (0.90-2.90) K/uL Jackson # (Auto) 0.60 (0.00-0.90) K/UL Eos # (Auto) 0.09 (0.00-0.50) K/uL Baso # (Auto) 0.05 (0.00-0.30) K/uL Abs Immat Gran (auto) 0.02 (0.00-0.30) K/uL Imm/Tot Granulo (auto) 0.2 % Sodium 134 L (135-149) mmol/L Potassium 4.8 (3.6-5.1) mmol/L Chloride 104 (96-114) mmol/L Carbon Dioxide 23 (20-32) mmol/L Anion Gap 7 (7-15) mEq/L BUN 19 (5-24) mg/dL Creatinine 0.7 (0.5-1.5) mg/dL Estimated Creat Clear 115.36 Estimated GFR 127 ml/min Glucose 110 (60-115) mg/dL Calcium 9.2 (8.4-10.6) mg/dL Total Bilirubin 0.2 (0.1-1.5) mg/dL AST 27 (12-35) U/L ALT 26 (4-35) U/L Alkaline Phosphatase 101 (40-150) U/L C-Reactive Protein 0.6 (0.5-1.0) mg/dL Total Protein 7.8 (6.0-8.3) g/dL Albumin 4.5 (3.3-5.0) g/dL Lipase 51 (23-300) U/L Imaging Data US - abdomen: Attestation: I have reviewed the pertinent imaging results. Radiologist's impression: Uterus: 6.9 x 2.9 x 4.2 cm. Normal echotexture of the myometrium. No masses. IUD is present and in expected location. Endometrium: Transvaginal imaging was performed to better evaluate the endometrium. Endometrial thickness measures 2 mm. No sign of endometrial mass or fluid. Right ovary 3.8 x 1.8 x 1.5 centimeters. Left ovary 3.9 x 1.4 x 2.5 centimeters. No ovarian or adnexal masses. Normal arterial and venous blood flow is demonstrated in both ovaries. Cul-de-sac: No significant free fluid. IMPRESSION: IUD is in expected location. No acute findings to explain symptoms. Discharge Plan Discharge Clinical Impression: Anemia Abdominal pain Qualifiers: Abdominal location: lower abdomen, unspecified Qualified Code(s): R10.30 - Lower abdominal pain, unspecified Patient Disposition: Home, Self-Care Condition: Improved Additional Instructions: Pelvic ultrasound was normal with no evidence of significant cysts or abnormal placement of the IUD. Please follow-up with OBGYN. You may need to consider removal of IUD and alternate means to manage menstrual bleeding. Your hemoglobin was somewhat low today at 10.7. I wonder if this may be iron deficiency. Please follow-up with your primary MD for further evaluation. If you experience unusual pelvic discharge, fever, painful urination please seek medical attention. Prescriptions: No Action lurasidone 80 mg tablet 80 mg PO DAILY lamotrigine 150 mg tablet 150 mg PO DAILY propranolol 80 mg capsule,extended release 24 hr 80 mg PO DAILY lamotrigine 200 mg tablet 200 mg PO QDAY methylphenidate HCl 36 mg tablet extended release 24hr 72 mg PO QAM Follow Up/Referrals: Provider,Not a Local [Primary Care Provider, Family Practice] Stand Alone Forms: [employer] Info Instructions
--- NOTE | 2025-05-24 19:19 | CRLHL7_ITS ---
For Patients: As a result of the Century Cures Act, medical imaging exams and procedure reports are released immediately into your electronic medical record. You may view this report before your referring provider. If you have questions, please contact your health care provider. INDICATION: Pelvic pain TECHNIQUE: Ultrasound pelvis transvaginal for better assessment or to better visualize the endometrium. Real-time sonographic images with spectral and color Doppler imaging of the ovaries were obtained. COMPARISON: None. FINDINGS: Uterus: 6.9 x 2.9 x 4.2 cm. Normal echotexture of the myometrium. No masses. IUD is present and in expected location. Endometrium: Transvaginal imaging was performed to better evaluate the endometrium. Endometrial thickness measures 2 mm. No sign of endometrial mass or fluid. Right ovary 3.8 x 1.8 x 1.5 centimeters. Left ovary 3.9 x 1.4 x 2.5 centimeters. No ovarian or adnexal masses. Normal arterial and venous blood flow is demonstrated in both ovaries. Cul-de-sac: No significant free fluid. IMPRESSION: IUD is in expected location. No acute findings to explain symptoms. Dictated by Maryam Xiong MD @ 05/24/2025 8:41:17 PM (Electronically Signed)
[2025-05-24 19:41] VITALS: BP 137/76; PULSE 89; RESP 18; O2SAT 100
[2025-05-24 19:43] LABS: Hematocrit* 35.0 % (33.0-51.0); Hemoglobin* 10.7 gm/dL (12.0-16.0); Immature Granulocytes Abs Auto 0.02 K/uL (0.00-0.30); Immature Granulocytes Pct Auto 0.2 %; Lymphocytes Absolute Auto 3.35 K/uL (0.90-2.90); Mean Corpuscular HGB Conc 31 gm/dL (32-36); Mean Corpuscular Hemoglobin 21 pg (26-34); Mean Corpuscular Volume 67 fL (80-100); RDW Coefficient of Variation % 17.0 % (11.5-15.5); Red Blood Count* 5.23 m/uL (4.00-5.20); White Blood Count* 10.64 K/uL (4.50-11.00)
[2025-05-24 19:55] LABS: Albumin* 4.5 g/dL (3.3-5.0); Chloride* 104 mmol/L (96-114)
[2025-05-24 19:56] LABS: Potassium* 4.8 mmol/L (3.6-5.1); Sodium* 134 mmol/L (135-149)
[2025-05-24 19:58] LABS: Blood Urea Nitrogen* 19 mg/dL (5-24); Creatinine* 0.7 mg/dL (0.5-1.5); Est. Creatinine Clearance* 115.36; Estimated Glomerular Filt Rate 127 ml/min
[2025-05-24 19:59] LABS: Alanine Aminotransferase* 26 U/L (4-35); Alkaline Phosphatase* 101 U/L (40-150); Anion Gap 7 mEq/L (7-15); Aspartate Amino Transferase* 27 U/L (12-35); Bilirubin Total* 0.2 mg/dL (0.1-1.5); Calcium* 9.2 mg/dL (8.4-10.6); Carbon Dioxide* 23 mmol/L (20-32); Glucose* 110 mg/dL (60-115); Total Protein* 7.8 g/dL (6.0-8.3)
[2025-05-24 20:14] LABS: Slide Review Reflex No
[2025-05-24 21:54] VITALS: BP 142/90; PULSE 81; RESP 18; TEMP 36.6; O2SAT 99
== END 2025-05-24 21:55 | disposition home or self-care (01) ==
PROVIDERS: Emergency Provider Family Medicine
DX: R10.30 Lower abdominal pain, unspecified (principal); D64.9 Anemia, unspecified; Z97.5 Presence of (intrauterine) contraceptive device
CPT/HCPCS: 36415; 76830; 80053; 83690; 85025; 86140; 93976; 96374; 99284; J1885